=== PATIENT | male | born 1980 | race Hispanic/Latino ===

== ENCOUNTER 2018-06-12 18:23 | Emergency (ER) | payer BC, OTHER ==
--- NOTE | 2018-06-12 20:12 | RAD REPORT ---
EXAM DESCRIPTION: RAD - Lumbar Spine 3 Views - 06/12/2018 7:58 pm CLINICAL HISTORY: PAIN Radiculopathy COMPARISON: No comparisons FINDINGS: Vertebral body heights appear maintained. No compression fracture noted. Disc spaces are m aintained. No spondylolysis or spondylolisthesis. IMPRESSION: Negative study.
--- NOTE | 2018-06-12 20:26 | RAD REPORT ---
EXAM DESCRIPTION: RAD - Thoracic Spine Ap/Lat - 06/12/2018 8:11 pm CLINICAL HISTORY: PAIN Radiculopathy COMPARISON: No comparisons FINDINGS: The thoracic spine vertebral body heights and disc spaces are largely maintained. No acute compression fracture. A mild S-shaped scoliotic curvature is present. IMPRESSION: Mild scoliosis is noted without acute finding evident.
--- NOTE | 2018-06-12 20:34 | ER ---
Nurse's Notes [facility] Name: Tc Albarran Age: 38 yrs Sex: Male : 1980 Arrival Date: 06/12/2018 Time: 18:28 Bed 16 Private MD: Diagnosis: Low back pain;Muscle spasm of back Presentation: 06/12 18:43 Presenting complaint: Patient states: lower back pain that began 2 days ago. Pt denies aa5 N/V. Denies urinary symptoms. Pt denies known injury. Transition of care: patient was not received from another setting of care. Onset of symptoms was June 2018. Risk Assessment: Do you want to hurt yourself or someone else? Patient reports no desire to harm self or others. Initial Sepsis Screen: Does the patient meet any 2 criteria? No. Patient's initial sepsis screen is negative. Does the patient have a suspected source of infection? No. Patient's initial sepsis screen is negative. Care prior to arrival: None. 18:43 Method Of Arrival: Ambulatory aa5 18:43 Acuity: FRANTZ 3 aa5 Historical: - Allergies: 18:45 No Known Allergies; aa5 - PMHx: 18:45 Hyperlipidemia; aa5 - PSHx: 18:45 None; aa5 - Immunization history:: Adult Immunizations unknown. - Social history:: Smoking status: Patient/guardian denies using tobacco, Patient/guardian denies using street drugs, IV drugs. - Ebola Screening: : No symptoms or risks identified at this time. - Family history:: not pertinent. - Hospitalizations: : No recent hospitalization is reported. Screenin:36 Abuse screen: Denies threats or abuse. Denies injuries from another. Abuse screen:. aa1 Nutritional screening: No deficits noted. Tuberculosis screening: No symptoms or risk factors identified. Fall Risk None identified. Assessment: 19:36 General: Appears in no apparent distress. comfortable, Behavior is calm, cooperative, aa1 appropriate for age. Pain: Complains of pain in lumbar area and low back area Quality of pain is described as aching, Pain began 2-3 days ago. Is continuous. Neuro: Level of Consciousness is awake, alert, obeys commands, Oriented to person, place, time, situation, Moves all extremities. Full function Gait is steady. Respiratory: Airway is patent Respiratory effort is even, unlabored, Respiratory pattern is regular, symmetrical. GI: No signs and/or symptoms were reported involving the gastrointestinal system. : Denies burning with urination, inability to void, pain with urination. EENT: No signs and/or symptoms were reported regarding the EENT system. Derm: Skin is intact, is healthy with good turgor, Skin is pink, warm \T\ dry. Musculoskeletal: Circulation, motion, and sensation intact. Capillary refill < 3 seconds, Range of motion: intact in all extremities. 19:44 Reassessment: Pt taken to xray at this time. aa1 20:12 Reassessment: Patient appears in no apparent distress at this time. Patient and/or aa1 family updated on plan of care and expected duration. Pain level reassessed. Patient is alert, oriented x 3, equal unlabored respirations, skin warm/dry/pink. Pt back from x-ray. 20:42 Reassessment: Patient appears in no apparent distress at this time. Patient is alert, aa1 oriented x 3, equal unlabored respirations, skin warm/dry/pink. Discussed d/c \T\ f/u instructions with pt; denies questions or concerns at this time. Vital Signs: 18:45 BP 109 / 74; Pulse 77; Resp 18 S; Temp 98.0(TE); Pulse Ox 95% on R/A; Weight 113.4 kg aa5 (R); Height 5 ft. 11 in. (180.34 cm) (R); Pain 9/10; 19:36 BP 116 / 73; Pulse 81; Resp 18; Pulse Ox 97% on R/A; Pain 8/10; aa1 20:28 BP 107 / 84; Pulse 73; Resp 16; Pulse Ox 97% on R/A; aa1 18:45 Body Mass Index 34.87 (113.40 kg, 180.34 cm) aa5 ED Course: 18:28 Patient arrived in ED. rg4 18:44 Triage completed. aa5 18:44 Arm band placed on. aa5 19:25 Mindy Correia, RN is Primary Nurse. aa1 19:27 Serge Shea MD is Attending Physician. rn 19:36 Patient has correct armband on for positive identification. Bed in low position. Call aa1 light in reach. Pulse ox on. NIBP on. 19:58 XRAY Lumbar Spine (3 Views) In Process Unspecified. EDMS 20:03 XRAY Thoracic Spine (Ap/lat) In Process Unspecified. EDMS 20:42 No provider procedures requiring assistance completed. Patient did not have IV access aa1 during this emergency room visit. Administered Medications: No medications were administered Outcome: 20:33 Discharge ordered by . rn 20:42 Discharged to home ambulatory. aa1 20:42 Condition: good 20:42 Discharge instructions given to patient, Instructed on discharge instructions, follow up and referral plans. medication usage, Demonstrated understanding of instructions, follow-up care, medications, Prescriptions given X 1. 20:44 Patient left the ED. aa1 Signatures: Dispatcher [employer] EDMS Mindy Correia, RN RN aa1 Serge Shea MD MD rn Calderon, Audri, RN RN aa5 Marisa Pandya rg4
--- NOTE | 2018-06-12 20:34 | EDPHYS ---
Physician Documentation [facility] Name: Tc Albarran Age: 38 yrs Sex: Male : 1980 Arrival Date: 06/12/2018 Time: 18:28 Bed 16 Private MD: ED Physician Serge Shea HPI: 06/12 19:37 This 38 yrs old Male presents to ER via Ambulatory with complaints of Low Back rn Pain. 19:37 The patient presents with pain that is acute. The symptoms are located in the low back, rn lumbar area, left low back and right low back. The pain does not radiate. The problem was sustained from unknown cause. Onset: The symptoms/episode began/occurred 2 day(s) ago. Modifying factors: The patient symptoms are alleviated by remaining still, rest, the patient symptoms are aggravated by any movement. Severity of symptoms: At their worst the symptoms were moderate, in the emergency department the symptoms are unchanged. The patient has not experienced similar symptoms in the past. Reports low and mid back pain, non-radiating, began 2-3 days ago, worse with movement, no trauma, doesn't remember specific event that caused it, slowly worsening, no bowel/bladder complaints, no abd pain, no weakness or numbness of legs, is ambulatory.. Historical: - Allergies: 18:45 No Known Allergies; aa5 - PMHx: 18:45 Hyperlipidemia; aa5 - PSHx: 18:45 None; aa5 - Immunization history:: Adult Immunizations unknown. - Social history:: Smoking status: Patient/guardian denies using tobacco, Patient/guardian denies using street drugs, IV drugs. - Ebola Screening: : No symptoms or risks identified at this time. - Family history:: not pertinent. - Hospitalizations: : No recent hospitalization is reported. ROS: 19:37 Constitutional: Negative for fever, chills, and weight loss, Eyes: Negative for injury, rn pain, redness, and discharge, Neck: Negative for injury, pain, and swelling, Cardiovascular: Negative for chest pain, palpitations, and edema, Respiratory: Negative for shortness of breath, cough, wheezing, and pleuritic chest pain, Abdomen/GI: Negative for abdominal pain, nausea, vomiting, diarrhea, and constipation, Back: + back pain, no injury : Negative for injury, bleeding, discharge, and swelling, MS/Extremity: Negative for injury and deformity, Skin: Negative for injury, rash, and discoloration, Neuro: Negative for headache, weakness, numbness, tingling, and seizure. Exam: 19:37 Constitutional: This is a well developed, well nourished patient who is awake, alert, rn and in no acute distress. Head/Face: Normocephalic, atraumatic. Neck: Trachea midline, no thyromegaly or masses palpated, and no cervical lymphadenopathy. Supple, full range of motion without nuchal rigidity, or vertebral point tenderness. No Meningismus. Abdomen/GI: Soft, non-tender, with normal bowel sounds. No distension or tympany. No guarding or rebound. No evidence of tenderness throughout. Back: + lower thoracic and upper lumbar perispinal tenderness, no stepoff, no crepitus, no skin changes Skin: Warm, dry with normal turgor. Normal color with no rashes, no lesions, and no evidence of cellulitis. MS/ Extremity: Pulses equal, no cyanosis. Neurovascular intact. Full, normal range of motion. Equal circumference. Neuro: Awake and alert, GCS 15, oriented to person, place, time, and situation. Cranial nerves II-XII grossly intact. Motor strength 5/5 in all extremities. Sensory grossly intact. Cerebellar exam normal. Antalgic gait. Vital Signs: 18:45 BP 109 / 74; Pulse 77; Resp 18 S; Temp 98.0(TE); Pulse Ox 95% on R/A; Weight 113.4 kg aa5 (R); Height 5 ft. 11 in. (180.34 cm) (R); Pain 9/10; 19:36 BP 116 / 73; Pulse 81; Resp 18; Pulse Ox 97% on R/A; Pain 8/10; aa1 20:28 BP 107 / 84; Pulse 73; Resp 16; Pulse Ox 97% on R/A; aa1 18:45 Body Mass Index 34.87 (113.40 kg, 180.34 cm) aa5 MDM: 19:27 Patient medically screened. rn 20:32 Differential diagnosis: arthritis, strain, Herniated disc. Data reviewed: vital signs, rn nurses notes, radiologic studies, plain films, and as a result, I will discharge patient. Counseling: I had a detailed discussion with the patient and/or guardian regarding: the historical points, exam findings, and any diagnostic results supporting the discharge/admit diagnosis, radiology results, the need for outpatient follow up, to return to the emergency department if symptoms worsen or persist or if there are any questions or concerns that arise at home. Special discussion: I discussed with the patient/guardian in detail that at this point there is no indication for admission to the hospital. It is understood, however, that if the symptoms persist or worsen the patient needs to return immediately for re-evaluation. 06/12 19:31 Order name: XRAY Lumbar Spine (3 Views); Complete Time: 20:32 rn 06/12 19:31 Order name: XRAY Thoracic Spine (Ap/lat); Complete Time: 20:32 rn Administered Medications: No medications were administered Disposition: 06/12/18 20:33 Discharged to Home. Impression: Low back pain, Muscle spasm of back. - Condition is Stable. - Discharge Instructions: Back Pain, Adult, Muscle Cramps and Spasms, Musculoskeletal Pain, Back Exercises, [id number]. - Prescriptions for Cyclobenzaprine 10 mg Oral Tablet - take 1 tablet by ORAL route every 8 hours As needed; 30 tablet. - Medication Reconciliation Form, Thank You Letter, Antibiotic Education, Prescription Opioid Use form. - Follow up: Private Physician; When: As needed; Reason: Recheck today's complaints, Re-evaluation by your physician. - Problem is new. - Symptoms have improved. Signatures: Dispatcher [employer] EDMS Mindy Correia RN RN aa1 Serge Shea MD MD rn Calderon, Audri, RN RN aa5 Corrections: (The following items were deleted from the chart) 20:44 20:33 06/12/2018 20:33 Discharged to Home. Impression: Low back pain; Muscle spasm of aa1 back. Condition is Stable. Forms are Medication Reconciliation Form, Thank You Letter, Antibiotic Education, Prescription Opioid Use. Follow up: Private Physician; When: As needed; Reason: Recheck today's complaints, Re-evaluation by your physician. Problem is new. Symptoms have improved. rn
== END 2018-06-12 20:44 | disposition home or self-care (01) ==
LOC: ER 18:23
DX: M62.830 Muscle spasm of back (principal); E78.5 Hyperlipidemia, unspecified
CPT/HCPCS: 72070; 72100; 99283

== ENCOUNTER 2019-01-14 20:18 | Observation (INO) | payer OTHER ==
[2019-01-14 21:49] LABS: Absolute Lymphocytes (CBC) 2.4 K/uL (0.7-4.9); Absolute Monocytes 0.8 K/uL (0.1-1.3); Basophils % 0.4 % (0-1.3); Hematocrit 47.7 % (39.6-49.0); Lymphocytes % 22.9 % (15.3-44.8); MPV 9.4 fL (7.6-11.3); Monocytes % 7.5 % (3.3-12.3); RBC Red Blood Cell Count 5.37 M/uL (4.33-5.43)
[2019-01-14] MEDS ORDERED: ASPIRIN 81 MG CHEWABLE TABLET ONE (21:51)
[2019-01-14] MEDS ORDERED: KETOROLAC 30 MG/ML INJ ONE (21:51)
[2019-01-14] MEDS ORDERED: NA CHLORIDE 0.9% 1,000 ML ONE (21:51)
[2019-01-14 21:56] LABS: Protime INR 1.07
[2019-01-14 22:00] LABS: ALT/SGPT 106 U/L (12-78); AST/SGOT 43 U/L (15-37); Alkaline Phosphatase 119 U/L (45-117); BUN Blood Urea Nitrogen 16 mg/dL (7-18); Bicarbonate 28 mmol/L (21-32); Bilirubin Direct 0.3 mg/dL (0-0.2); Bilirubin Total 2.1 mg/dL (0.2-1.0); Glucose Level 94 mg/dL (74-106); Magnesium 2.5 mg/dL (1.8-2.4); Potassium 3.1 mmol/L (3.5-5.1); Protein, Total 8.1 g/dL (6.4-8.2); Sodium Level 142 mmol/L (136-145); Troponin (Emerg Dept Use Only) < 0.02 ng/mL (0.0-0.045)
[2019-01-14 22:04] LABS: NT PRO-BNP < 5 pg/mL (<125)
[2019-01-14] MEDS ORDERED: ACETAMINOPHEN 500 MG TAB PO PRN (22:34)
[2019-01-14] MEDS ORDERED: ALPRAZOLAM 0.25 MG TABLET PO PRN (22:34)
--- NOTE | 2019-01-14 22:36 | EDPHYS ---
Physician Documentation [facility] Name: Tc Albarran Age: 38 yrs Sex: Male : 1980 Arrival Date: 01/14/2019 Time: 20:22 Bed 26 Private MD: ED Physician Rosa Roberto HPI: 01/14 21:11 This 38 yrs old Male presents to ER via Ambulatory with complaints of Fall ma2 Injury, Numbness Of Arm, Dizziness. 21:11 Details of fall: The patient fell from an upright position. Associated injuries: The ma2 patient sustained injury to the chest, specifically the anterior aspect of left upper chest, left lateral anterior chest and left lateral posterior chest. Severity of symptoms: At their worst the symptoms were moderate, in the emergency department the symptoms are unchanged. The patient has not experienced similar symptoms in the past. had syncope fell and het left arm/shoulder however has beenhaving chest pain for 2 days on/off . Historical: - Allergies: 20:39 No Known Allergies; jd3 - Home Meds: 20:39 None [Active]; jd3 - PMHx: 20:39 High Cholesterol; jd3 - PSHx: 20:39 None; jd3 - Immunization history:: Adult Immunizations up to date. - Social history:: Smoking status: Patient/guardian denies using tobacco, Patient/guardian denies using alcohol, street drugs, The patient lives with family. - Ebola Screening: : Patient negative for fever greater than or equal to 101.5 degrees Fahrenheit, and additional compatible Ebola Virus Disease symptoms. - Family history:: not pertinent. ROS: 21:11 Constitutional: Negative for fever, chills, and weight loss. ma2 21:11 ENT: Negative for injury, pain, and discharge, Neck: Negative for injury, pain, and swelling, Respiratory: Negative for shortness of breath, cough, wheezing, and pleuritic chest pain, Abdomen/GI: Negative for abdominal pain, nausea, diarrhea, and constipation. 21:11 Cardiovascular: Positive for chest pain, Negative for edema, orthopnea, palpitations, acute changes. 21:11 MS/extremity: Positive for pain, Negative for abrasion, decreased range of motion, deformity, swelling, tingling. 21:11 All other systems are negative. Exam: 21:11 Constitutional: This is a well developed, well nourished patient who is awake, alert, ma2 and in no acute distress. Chest/axilla: Normal chest wall appearance and motion. Nontender with no deformity. No lesions are appreciated. Cardiovascular: Regular rate and rhythm with a normal S1 and S2. No gallops, murmurs, or rubs. Normal PMI, no JVD. No pulse deficits. Respiratory: Lungs have equal breath sounds bilaterally, clear to auscultation and percussion. No rales, rhonchi or wheezes noted. No increased work of breathing, no retractions or nasal flaring. Abdomen/GI: Soft, non-tender, with normal bowel sounds. No distension or tympany. No guarding or rebound. No evidence of tenderness throughout. 21:11 Head/Face: Normocephalic, atraumatic. Eyes: Pupils equal round and reactive to light, extra-ocular motions intact. Lids and lashes normal. Conjunctiva and sclera are non-icteric and not injected. Cornea within normal limits. Periorbital areas with no swelling, redness, or edema. Back: No spinal tenderness. No costovertebral tenderness. Full range of motion. Neuro: Awake and alert, GCS 15, oriented to person, place, time, and situation. Cranial nerves II-XII grossly intact. Motor strength 5/5 in all extremities. Sensory grossly intact. Cerebellar exam normal. Normal gait. 21:11 Musculoskeletal/extremity: ROM: limited passive range of motion, in the left arm. Vital Signs: 20:39 BP 115 / 85; Pulse 86; Resp 16 S; Temp 98.5(O); Pulse Ox 95% on R/A; Weight 108.86 kg jd3 (R); Height 5 ft. 11 in. (180.34 cm) (R); Pain 7/10; 22:28 BP 106 / 71; Pulse 75; Resp 16; Pulse Ox 95% on R/A; Pain 4/10; ed1 20:39 Body Mass Index 33.47 (108.86 kg, 180.34 cm) jd3 MDM: 20:47 Patient medically screened. ma2 21:11 Differential diagnosis: fracture, strain, need chest pain workup acs rule out . ma2 21:56 Data reviewed: vital signs, nurses notes, lab test result(s), radiologic studies, plain ma2 films. Counseling: I had a detailed discussion with the patient and/or guardian regarding: the historical points, exam findings, and any diagnostic results supporting the discharge/admit diagnosis, the need for further work-up and treatment in the hospital. 22:34 Physician consultation: Rosa Dominguez MD was contacted at 22:35, regarding admission, kb to the telemetry unit. and will see patient in ED, shortly. ED course: Dr Manzano discussed admission with the patient prior to leaving. Wanted pt admitted for chest pain and syncope. 01/14 21:10 Order name: Basic Metabolic Panel; Complete Time: 22:30 ky2 01/14 21:10 Order name: CBC with Diff; Complete Time: 21:53 ky2 01/14 21:10 Order name: LFT's; Complete Time: 22:30 ky2 01/14 21:10 Order name: Magnesium; Complete Time: 22:30 [facility] 01/14 21:10 Order name: NT PRO-BNP; Complete Time: 22:30 [facility] 01/14 21:10 Order name: PT-INR; Complete Time: 22:30 [facility] 01/14 21:10 Order name: Troponin (emerg Dept Use Only); Complete Time: 22:30 ky2 01/14 22:48 Order name: Basic Metabolic Panel [facility] 01/14 22:48 Order name: Basic Metabolic Panel [facility] 01/14 22:48 Order name: CBC with Automated Diff [facility] 01/14 22:48 Order name: CBC with Automated Diff [facility] 01/14 22:48 Order name: Lipid Profile [facility] 01/14 22:48 Order name: Lipid Profile [facility] 01/14 22:48 Order name: Troponin I [facility] 01/14 21:10 Order name: XRAY Chest (1 view) [facility] 01/14 21:10 Order name: EKG; Complete Time: 21:11 ky2 01/14 21:10 Order name: Cardiac monitoring; Complete Time: 21:14 [facility] 01/14 21:10 Order name: EKG - Nurse/Tech; Complete Time: 21:23 ky2 01/14 21:10 Order name: Humerus Left XRAY [facility] 01/14 22:48 Order name: CONS Physician Consult [facility] 01/14 22:48 Order name: Heart Healthy [facility] 01/14 22:48 Order name: Echo with Doppler [facility] 01/14 22:48 Order name: Troponin I [facility] 01/14 22:48 Order name: Troponin I [facility] 01/15 06:07 Order name: Lipid Profile [facility] 01/15 06:34 Order name: LDL, Direct [facility] 01/14 21:10 Order name: IV Saline Lock; Complete Time: 21:37 ky2 01/14 21:10 Order name: Labs collected and sent; Complete Time: 21:37 ky2 01/14 21:10 Order name: O2 Per Protocol; Complete Time: 21:14 ma2 01/14 21:10 Order name: O2 Sat Monitoring; Complete Time: 21:13 ma2 Administered Medications: 21:44 Drug: TORadol 30 mg Route: IVP; Site: right antecubital; ed1 22:37 Follow up: Response: No adverse reaction; Pain is decreased ed1 21:44 Drug: NS 0.9% 1000 ml Route: IV; Rate: 1 bolus; Site: right antecubital; ed1 23:35 Follow up: IV Status: Completed infusion; IV Intake: 1000ml ed1 21:45 Drug: Aspirin Chewable Tablet 324 mg Route: PO; ed1 22:38 Follow up: Response: No adverse reaction ed1 22:45 Drug: Potassium Chloride 40 mEq Route: PO; ed1 23:35 Follow up: Response: No adverse reaction ed1 Disposition: 01/14/19 22:36 Hospitalization ordered by Rosa Dominguez for Observation. Preliminary diagnosis are Chest pain, unspecified, Syncope and collapse. - Bed requested for Telemetry/MedSurg (observation). - Status is Observation. ss - Condition is Stable. - Problem is new. - Symptoms are resolved. UTI on Admission? No Signatures: Dispatcher [employer] EDCA Shahnaz Quevedo, WINSOME-Jonathan RELIGIOUS EDUCATION DIRECTOR-Katia Flores Shelby, RN RN ss Riggs, Erika, RN RN ed1 Baljeet Leonard RN RN jd3 Alzahri, Mohammad, MD MD ma2 Corrections: (The following items were deleted from the chart) 23:34 22:36 Hospitalization Ordered by Rosa Dominguez MD for Observation. Preliminary ed1 diagnosis is Chest pain, unspecified; Syncope and collapse. Bed requested for Telemetry/MedSurg (observation). Status is Observation. Condition is Stable. Problem is new. Symptoms are resolved. UTI on Admission? No. kb 01/15 07:08 01/14 23:34 01/14/2019 22:36 Hospitalization Ordered by Rosa Dominguez MD for bd Observation. Preliminary diagnosis is Chest pain, unspecified; Syncope and collapse. Bed requested for [facility] ER HOLD. Status is Observation. Condition is Stable. Problem is new. Symptoms are resolved. UTI on Admission? No. ed1 01/15 08:24 07:08 01/14/2019 22:36 Hospitalization Ordered by Rosa Dominguez MD for Observation. ss Preliminary diagnosis is Chest pain, unspecified; Syncope and collapse. Bed requested for Telemetry/MedSurg (observation). Status is Observation. Condition is Stable. Problem is new. Symptoms are resolved. UTI on Admission? No. bd
--- NOTE | 2019-01-14 22:36 | ER ---
Nurse's Notes [facility] Name: Tc Albarran Age: 38 yrs Sex: Male : 1980 Arrival Date: 01/14/2019 Time: 20:22 Bed 26 Private MD: Diagnosis: Chest pain, unspecified;Syncope and collapse Presentation: 01/14 20:36 Presenting complaint: Patient states: "I was laying in bed and when I stud up I blacked jd3 out for a minute and fell in my room. I felt dizzy and my head was spinning and my left arm felt numb, but it has gotten better.". Transition of care: patient was not received from another setting of care. Onset of symptoms was January 14, 2019. Risk Assessment: Do you want to hurt yourself or someone else? Patient reports no desire to harm self or others. Initial Sepsis Screen: Does the patient meet any 2 criteria? No. Patient's initial sepsis screen is negative. Does the patient have a suspected source of infection? No. Patient's initial sepsis screen is negative. Care prior to arrival: None. 20:36 Method Of Arrival: Ambulatory jd3 20:36 Acuity: FRANTZ 3 jd3 Historical: - Allergies: 20:39 No Known Allergies; jd3 - Home Meds: 20:39 None [Active]; jd3 - PMHx: 20:39 High Cholesterol; jd3 - PSHx: 20:39 None; jd3 - Immunization history:: Adult Immunizations up to date. - Social history:: Smoking status: Patient/guardian denies using tobacco, Patient/guardian denies using alcohol, street drugs, The patient lives with family. - Ebola Screening: : Patient negative for fever greater than or equal to 101.5 degrees Fahrenheit, and additional compatible Ebola Virus Disease symptoms. - Family history:: not pertinent. Screenin:47 Abuse screen: Denies threats or abuse. Denies injuries from another. Nutritional ed1 screening: No deficits noted. Tuberculosis screening: No symptoms or risk factors identified. Fall Risk Fall in past 12 months (25 points). No secondary diagnosis (0 pts). No IV (0 pts). Ambulatory Aid- None/Bed Rest/Nurse Assist (0 pts). Gait- Normal/Bed Rest/Wheelchair (0 pts) Mental Status- Oriented to own ability (0 pts). Total Soot Fall Scale indicates Low Risk Score (25-44 pts). Fall prevention measures have been instituted. Side Rails Up X 2 Frequent Obs/Assesments occuring Family Present and informed to notify staff if they need to leave bedside As available Patient and Family Educated on Fall Prevention Program and strategies. 21:45 Patient has been NPO before screening. The patient is alert, able to follow commands. ed1 The patient does not exhibit slurred or garbled speech The patient is not exhibiting difficulty speaking. The patient does not exhibit difficulty understanding words. The patient is able to swallow own secretions with no drooling or need for suction. Patient tolerated one teaspoon of water. No drooling, immediate coughing, gurgling, or clearing of the throat was noted. The patient tolerated 90mL of water. No drooling, immediate coughing, gurgling, or clearing of the throat was noted. The patient passed the bedside swallow screening. Oral medications may be given as ordered. Contact Physician for further diet orders. Assessment: 20:47 General: Appears uncomfortable, Behavior is calm, cooperative. Pain: Complains of pain ed1 in left shoulder Pain radiates to left arm Pain currently is 7 out of 10 on a pain scale. Quality of pain is described as aching, tingling, Pain began 1 hour ago. Is continuous. Neuro: Level of Consciousness is awake, alert, obeys commands, Oriented to person, place, time, situation, Gait is steady, Speech is normal, Reports numbness in left arm weakness Denies blurred vision dizziness, headache. Cardiovascular: Denies chest pain, Heart tones S1 S2 present Capillary refill < 3 seconds in bilateral fingers Patient's skin is warm and dry. Respiratory: Airway is patent Respiratory effort is even, unlabored, Respiratory pattern is regular, symmetrical, Breath sounds are clear bilaterally. Denies cough, shortness of breath. GI: Abdomen is non-distended, Bowel sounds present X 4 quads. Abd is soft and non tender X 4 quads. Patient currently denies diarrhea, nausea, vomiting. : No signs and/or symptoms were reported regarding the genitourinary system. EENT: No signs and/or symptoms were reported regarding the EENT system. Derm: Skin is intact, is healthy with good turgor, Skin is dry, Skin is normal, Skin temperature is warm. Musculoskeletal: Circulation, motion, and sensation intact. Capillary refill < 3 seconds, in bilateral fingers. Range of motion: limited in left shoulder Swelling absent Reports numbness in left arm pain in left shoulder Pain is 7 out of 10 on a pain scale. 22:28 Reassessment: Patient appears in no apparent distress at this time. Patient and/or ed1 family updated on plan of care and expected duration. Pain level reassessed. Patient is alert, oriented x 3, equal unlabored respirations, skin warm/dry/pink. Patient states feeling better. Patient states symptoms have improved. Vital Signs: 20:39 BP 115 / 85; Pulse 86; Resp 16 S; Temp 98.5(O); Pulse Ox 95% on R/A; Weight 108.86 kg jd3 (R); Height 5 ft. 11 in. (180.34 cm) (R); Pain 7/10; 22:28 BP 106 / 71; Pulse 75; Resp 16; Pulse Ox 95% on R/A; Pain 4/10; ed1 20:39 Body Mass Index 33.47 (108.86 kg, 180.34 cm) jd3 ED Course: 20:22 Patient arrived in ED. am2 20:38 Triage completed. jd3 20:39 Arm band placed on Patient notified of wait time. jd3 20:41 Hodan Ledesma, RN is Primary Nurse. ed1 20:47 Awaiting ED provider evaluation. ed1 20:47 Patient has correct armband on for positive identification. Placed in gown. Bed in low ed1 position. Call light in reach. Side rails up X2. Adult w/ patient. Pulse ox on. NIBP on. 20:59 Rosa Roberto MD is Attending Physician. ma2 21:26 teletypesetter monitor on. jp3 21:26 EKG done, by ED staff, reviewed by Rosa Roberto MD. ed1 21:36 Initial lab(s) drawn, by me, sent to lab. Inserted saline lock: 20 gauge in right ed1 antecubital area, using aseptic technique. Blood collected. 22:00 Patient moved to radiology via wheelchair. jr1 22:16 XRAY Chest (1 view) In Process Unspecified. EDMS 22:16 Humerus Left XRAY In Process Unspecified. EDMS 22:36 Rosa Dominguze MD is Hospitalizing Provider. kb 23:34 No provider procedures requiring assistance completed. Patient admitted, IV remains in ed1 place. intact, No redness/swelling at site. Administered Medications: 21:44 Drug: TORadol 30 mg Route: IVP; Site: right antecubital; ed1 22:37 Follow up: Response: No adverse reaction; Pain is decreased ed1 21:44 Drug: NS 0.9% 1000 ml Route: IV; Rate: 1 bolus; Site: right antecubital; ed1 23:35 Follow up: IV Status: Completed infusion; IV Intake: 1000ml ed1 21:45 Drug: Aspirin Chewable Tablet 324 mg Route: PO; ed1 22:38 Follow up: Response: No adverse reaction ed1 22:45 Drug: Potassium Chloride 40 mEq Route: PO; ed1 23:35 Follow up: Response: No adverse reaction ed1 Intake: 23:35 IV: 1000ml; Total: 1000ml. ed1 Outcome: 22:36 Decision to Hospitalize by Provider. kb 23:34 Admitted to ER Hold. Please see [facility] for further documentation. ed1 23:34 Condition: stable 23:34 Discharge instructions given to patient, Instructed on the need for admit, Demonstrated understanding of instructions. 04 08:24 Patient left the ED. ss Signatures: Dispatcher [employer] EDMS Shahnaz Quevedo, GOLF TOURNAMENT CONSULTANT-C GOLF TOURNAMENT CONSULTANT-Ckb Rebecca Murphy jr1 Olga Khan RN RN ss Riggs, Erika, RN RN ed1 Kendy Juarez am2 Baljeet Leonard RN RN Rosa Lion MD MD ma2 Ac Green jp3 Corrections: (The following items were deleted from the chart) 04 21:36 21:26 EKG done, by ED staff, reviewed by Hodan Ledesma RN jp3 ed1
[2019-01-14] MEDS ORDERED: POTASSIUM CL SA 10 MEQ TAB PO ONE (22:53)
[2019-01-15 05:56] LABS: Absolute Lymphocytes (CBC) 2.3 K/uL (0.7-4.9); Absolute Monocytes 0.6 K/uL (0.1-1.3); Absolute Neutrophil 5.1 K/uL (1.8-8.0); Basophils % 0.4 % (0-1.3); Eosinophils % 3.3 % (0-4.4); MPV 9.5 fL (7.6-11.3); Monocytes % 7.6 % (3.3-12.3); RBC Red Blood Cell Count 5.16 M/uL (4.33-5.43)
[2019-01-15 06:06] LABS: BUN Blood Urea Nitrogen 17 mg/dL (7-18); Bicarbonate 29 mmol/L (21-32); Glucose Level 92 mg/dL (74-106); HDL Cholesterol 31 mg/dL (40-60); LDL Cholesterol, Calculated ND (<130); Potassium 3.4 mmol/L (3.5-5.1); Sodium Level 143 mmol/L (136-145)
[2019-01-15 06:18] LABS: LDL, Direct 79 mg/dL (100-129)
--- NOTE | 2019-01-15 07:56 | RAD REPORT ---
EXAM DESCRIPTION: RAD - Humerus Left - 01/14/2019 10:19 pm CLINICAL HISTORY: Left arm pain status post fall FINDINGS: No fracture is seen
--- NOTE | 2019-01-15 08:01 | RAD REPORT ---
EXAM DESCRIPTION: Roro Single View01/14/2019 10:21 pm CLINICAL HISTORY: Chest pain COMPARISON: none FINDINGS: The lungs appear clear of acute infiltrate. The heart is normal size IMPRESSION: No acute abnormalities displayed
[2019-01-15] MEDS: METOPROLOL TAR 50 MG TAB PO SCH ×2 (09:00→21:04)
[2019-01-15] MEDS: ENOXAPARIN 40 MG/0.4 ML SQ SCH (09:00)
[2019-01-15] MEDS: ASPIRIN EC 81 MG TAB PO SCH (09:01)
--- NOTE | 2019-01-15 10:06 | ECHO ---
HEIGHT: 5 ft 11 in WEIGHT: 239 lb 15.923 oz DATE OF STUDY: 01/15/[address]: Rosa Dominguez MD 2-DIMENSIONAL: YES M.MODE: YES DOPPLER: YES COLOR FLOW: YES TDS: NO PORTABLE: NO DEFINITY: NO BUBBLE STUDY: NO DIAGNOSIS: SYNCOPE CARDIAC HISTORY: CATHERIZATION: NO SURGERY: NO PROSTHETIC VALVE: NO PACEMAKER: NO MEASUREMENTS (cm) DIASTOLIC (NORMALS) SYSTOLIC (NORMALS) IVSd 1.0 (0.6-1.2) LA Diam 3.7 (1.9-4.0) LVEF 59% LVIDd 4.1 (3.5-5.7) LVIDs 2.8 (2.0-3.5) %FS 31% LVPWd 1.1 (0.6-1.2) Ao Diam 2.9 (2.0-3.7) 2 DIMENSIONAL ASSESSMENT: RIGHT ATRIUM: NORMAL LEFT ATRIUM: NORMAL RIGHT VENTRICLE: NORMAL LEFT VENTRICLE: NORMAL TRICUSPID VALVE: NORMAL MITRAL VALVE: NORMAL PULMONIC VALVE: NORMAL AORTIC VALVE: NORMAL PERICARDIAL EFFUSION: NONE AORTIC ROOT: NORMAL LEFT VENTRICULAR WALL MOTION: NORMAL. DOPPLER/COLOR FLOW: NORMAL. COMMENTS: NORMAL 2D ECHO WITH DOPPLER. TECHNOLOGIST: JEANETTE DUNBAR
--- NOTE | 2019-01-15 10:45 | EKG ---
Test Date: 2019-01-14 Test Time: 21:21:45 Managed Care Analyst: JAYLENE MEASUREMENT RESULTS: Intervals: Rate: 71 ID: [id number] QRSD: 92 QT: 400 QTc: 434 [place]: P: 37 ID: [id number] QRS: 4 T: 11 INTERPRETIVE STATEMENTS: Normal sinus rhythm Normal ECG Electronically Signed On 01-15-19 10:44:15 CDT by Melvin Zaidi
--- NOTE | 2019-01-15 11:19 | P.HP ---
Certification for Inpatient Patient admitted to: Observation With expected LOS: <2 Midnights Patient will require the following post-hospital care: None Practitioner: I am a practitioner with admitting privileges, knowledge of patient current condition, hospital course, and medical plan of care. Services: Services provided to patient in accordance with Admission requirements found in Title 42 Section 412.3 of the Code of Federal Regulations Patient History Date of Service: 01/15/19 Reason for admission: status post fall with left-sided paresthesias History of Present Illness: Patient is a 30-year-old gentleman who came to the hospital after he suffered a fall and left-sided injury. He fell and had a syncopal episode. He states he was ambulating and suddenly he felt dizzy -meaning faint- and he suddenly collapsed to be in landed on the left side of his body. When he awoke and he had paresthesias and weakness on the left upper extremity. He was brought into the hospital for further workup. In the emergency room his initial workup was negative. He will be admitted to the hospital for further workup regarding his syncopal event. He is still having some left-sided paresthesias. His strength is a 5/5 however in both extremities. He does have some sensory deficits. Will admit him to the hospital and worked him up. Allergies No Known Allergies Allergy (Verified 01/15/19 08:21) Home Medications: NK [No Home Meds] 01/14/19 - Past Medical/Surgical History Has patient received pneumonia vaccine in the past: No Past Medical History: Patient denies medical history Past Surgical History: Patient denies surgical history - Family History Father Family History: Reviewed- Non-Contributory - Social History Smoking Status: Never smoker Alcohol use: No CD- Drugs: No Caffeine use: No Review of Systems 10-point ROS is otherwise unremarkable Physical Examination - Vital Signs Temperature: 97.8 F Blood Pressure: 115/65 Pulse: 79 Respirations: 18 Pulse Ox (%): 95 - Physical Exam General: Alert, In no apparent distress, Oriented x3 HEENT: Atraumatic, PERRLA, Mucous membr. moist/pink, EOMI, Sclerae nonicteric Neck: Supple, 2+ carotid pulse no bruit, No LAD, Without JVD or thyroid abnormality Respiratory: Clear to auscultation bilaterally, Normal air movement Cardiovascular: Regular rate/rhythm, Normal S1 S2, No murmurs Gastrointestinal: Normal bowel sounds, Soft and benign, Non-distended, No tenderness, No rebound, No guarding Musculoskeletal: No clubbing, No swelling, No tenderness Integumentary: No rashes Neurological: Normal gait, Normal speech, Normal strength at 5/5 x4 extr, Normal tone, Normal affect, Abnormal sensation Lymphatics: No axilla or inguinal lymphadenopathy - Studies Laboratory Data (last 24 hrs) 01/14/19 21:30: PT 12.6 H, INR 1.07 01/14/19 21:30: WBC 10.4, Hgb 16.3, Hct 47.7, Plt Count 213 01/14/19 21:30: Sodium 142, Potassium 3.1 L, BUN 16, Creatinine 0.95, Glucose 94 , Magnesium 2.5 H, Total Bilirubin 2.1 H, AST 43 H, ALT 106 H, Alkaline Phosphatase 119 H Assessment & Plan - Problems (Diagnosis) (1) Syncope and collapse Current Visit: Yes Status: Acute (2) Arm paresthesia, left Current Visit: Yes Status: Acute - Plan 1. MRI of the brain 2. Echocardiogram and carotid Doppler 3. Anti-platelet therapy and statin therapy 4. Neurology consultation if symptoms do not improve 5. Strict BP and BS control 6. DVT prophylaxis Discharge Plan: Home Plan to discharge in: 24 Hours - Advance Directives Does patient have a Living Will: No Does patient have a Durable POA for Healthcare: No - Code Status/Comfort Care Code Status Assessed: Yes Code Status: Full Code Critical Care: No Time Spent Managing PTS Care (In Minutes): 45
--- NOTE | 2019-01-15 11:29 | RAD REPORT ---
EXAM DESCRIPTION: MRI - Brain W/Wo Cont - 01/15/2019 11:11 am CLINICAL HISTORY: Syncope, stroke-like symptoms, headache, dizziness COMPARISON: None. TECHNIQUE: Sagittal and axial T1-weighted images were obtained. Axial PD/heavily T2-weighted and T2- FLAIR images were obtained along with axial DWI/ADC mapping sequences. Coronal heavily T2 weighted s equence obtained. Axial and coronal post-contrast T1-weighted images were also obtained. A 20 ml Mul tihance contrast following utilized. FINDINGS: No intracranial hemorrhage, mass or acute infarction. There is no edema or shift of midli ne structures. No extra-axial fluid collections. Nicholson-matter/white matter junction is preserved. Sig nal voids are seen as a normal finding in the major intracranial vessels. Post-contrast images show normal enhancement. No dural thickening. Mastoid air cells are clear. No air-fluid level in the sinuses. Polyps or retention cysts are present along the floor of the left maxillary sinus. No globe or orbital content abnormality. IMPRESSION: No infarction, mass or other acute intracranial finding. No suspicious findings seen. Retention cysts or polyps along the floor of the left maxillary sinus. No acute sinus finding.
--- NOTE | 2019-01-15 11:36 | RAD REPORT ---
EXAM DESCRIPTION: MRI - MRA Head Wo Cont - 01/15/2019 11:11 am CLINICAL HISTORY: Syncope, stroke-like symptoms, dizziness COMPARISON: MR brain same date TECHNIQUE: Axial and coronal 3D [id number] image acquisition was performed. 3D rotational images were generated with source and reconstruction images reviewed. Horizontal and vertical axis rotation al views generated using MIP protocol. FINDINGS: No aneurysm or vascular malformation identified. No vasculitis or other diffuse vascular p rocess seen. No occlusion or focal narrowing identified. Patient has a normal variant right vertebral artery terminating at the posterior inferior cerebellar artery. IMPRESSION: MRA head examination shows no significant or suspicious finding.
--- NOTE | 2019-01-15 11:38 | RAD REPORT ---
EXAM DESCRIPTION: MRI - MRA Neck W/Wo Cont - 01/15/2019 11:11 am CLINICAL HISTORY: Syncope, stroke-like symptoms, dizziness COMPARISON: None. TECHNIQUE: Axial and coronal 3D [id number] image acquisition was performed. 3D rotational images were generated with source and reconstruction images reviewed. Horizontal and vertical axis rotation al views generated using MIP protocol. FINDINGS: Aortic arch is 3 vessel with no origin stenoses. Origins of each vertebral artery normal a s well. Left vertebral artery is dominant. Right vertebral artery terminates at the posterior inferio r cerebellar artery as a normal variant. No aneurysm or vascular malformation. No dissection is seen. No focal or diffuse vascular abnormality identifiable. IMPRESSION: Unremarkable MRA neck examination.
[2019-01-15 12:08] LABS: HDL Cholesterol 31 mg/dL (40-60); LDL Cholesterol, Calculated ND (<130)
[2019-01-15 12:20] LABS: LDL, Direct 85 mg/dL (100-129)
--- NOTE | 2019-01-15 15:29 | CON ---
Chief Complaint: Syncope. History Of Present Illness: Mr. Virgil Albarran was lying in bed. His children were imploring him to get up. He had been tired. It was late in the afternoon when he got out of bed and stood up. He re members feeling the room spin. He fell to the floor. He thinks there was loss of consciousness, but on closer questioning, he was always aware of voices. He knew his children were very frightened. I t was 10 minutes before he could get up. He did not report feeling nauseated. Half an hour later he noticed his left pectoral muscle was sore. He came to the hospital where a chest x-ray and humerus x-rays are rather unremarkable and EKG is normal. Cardiac enzymes are normal. He is scheduled to weaver ve MRIs, MRAs, cerebral and extracranial pre-cerebral vessels and echo. The patient has no previous history of syncope. No history of diabetes, hypertension, dyslipidemia. No tobacco use. No illegal drug use. Physical Examination: Vital signs: 5 feet 11, 239 pounds. HEENT: Normal. No carotid bruits. Lungs: Clear. Heart: Within normal limits. Abdomen: Soft. Extremities: Normal. I did a Hallpike maneuver; when he turns his head to the left and lies back, he has a lot of nystagmu s and vertigo symptoms on the right, minimal. Impression: The patient probably had intense positional vertigo. I think it would possibly benefit him to have Ulises's maneuvers done, that being said it should only be done if all of the other studie s are normal looking for vascular disease. I do not suspect it was cardiac arrhythmia or vascular disease that causes near-syncope and vertiginous symptoms. JABARI/JAHAIRA Voice ID: [id number] Report ID: [id number]
[2019-01-15] MEDS ORDERED: ATORVASTATIN 40 MG TAB PO SCH (21:00)
[2019-01-16] MEDS: METOPROLOL TAR 50 MG TAB PO SCH (08:37)
[2019-01-16] MEDS: ENOXAPARIN 40 MG/0.4 ML SQ SCH (08:37)
[2019-01-16] MEDS: ASPIRIN EC 81 MG TAB PO SCH (08:38)
--- NOTE | 2019-01-16 11:42 | PN ---
Mr. Virgil Albarran has a negative workup in all ways. No evidence of vascular disease or arrhythmia o r cardiac valve formation and based on my exam yesterday and history, I think what he had was transie nt vertigo. At this point, I think he could be discharged home. JABARI/JAHAIRA Voice ID: [id number] Report ID: [id number]
--- NOTE | 2019-01-16 12:45 | P.SSS ---
Patient History Date of Service: 01/16/19 Reason for admission: status post fall with left-sided paresthesias History of Present Illness: Patient is a 30-year-old gentleman who came to the hospital after he suffered a fall and left-sided injury. He fell and had a syncopal episode. He states he was ambulating and suddenly he felt dizzy -meaning faint- and he suddenly collapsed to be in landed on the left side of his body. When he awoke and he had paresthesias and weakness on the left upper extremity. He was brought into the hospital for further workup. In the emergency room his initial workup was negative. He will be admitted to the hospital for further workup regarding his syncopal event. He is still having some left-sided paresthesias. His strength is a 5/5 however in both extremities. He does have some sensory deficits. Will admit him to the hospital and worked him up. Allergies No Known Allergies Allergy (Verified 01/15/19 08:21) Home Medications: Atorvastatin Calcium [Lipitor] 40 mg PO BEDTIME #30 tab 01/16/19 - Past Medical/Surgical History Has patient received pneumonia vaccine in the past: No - Social History Smoking Status: Never smoker Alcohol use: No CD- Drugs: No Caffeine use: No Review of Systems 10-point ROS is otherwise unremarkable Physical Examination - Vital Signs Temperature: 97.8 F Blood Pressure: 118/62 Pulse: 71 Respirations: 18 Pulse Ox (%): 96 - Physical Exam General: Alert, In no apparent distress, Oriented x3 HEENT: Atraumatic, PERRLA, Mucous membr. moist/pink, EOMI, Sclerae nonicteric Neck: Supple, 2+ carotid pulse no bruit, No LAD, Without JVD or thyroid abnormality Respiratory: Clear to auscultation bilaterally, Normal air movement Cardiovascular: Regular rate/rhythm, Normal S1 S2 Gastrointestinal: Normal bowel sounds, No tenderness Musculoskeletal: No tenderness Integumentary: No rashes Neurological: Normal gait, Normal speech, Normal strength at 5/5 x4 extr, Normal tone, Normal affect - Diagnosis (Problem(s)) (1) Arm paresthesia, left Current Visit: Yes Status: Acute (2) Hypertriglyceridemia Current Visit: Yes Status: Acute (3) Syncope and collapse Current Visit: Yes Status: Acute Treatment Summary: Patient was admitted. An echocardiogram was done for his syncope which was normal with ejection fraction of 59%. A neck MRA, and brain MRI/MRA was done, which was normal without any acute abnormalities. Cardiology was consulted this. No cardiac testing/intervention is planned at this time. He was cleared for discharge by cardiology point of view. He was started on antiplatelet therapy and statin therapy. Lipid panel was done , LDL was normal but his triglycerides were elevated. He will be discharged on a statin medication. Prior to discharge, his symptoms of paresthesias resolved , he did not have any episodes of dizziness or passing out throughout the stay. He did complain of some shoulder pain when he fell. Recommended to take Tylenol to help with the pain. He is recommended to follow up with the primary care physician in a few days. He stated that he did not have a primary care physician. A list was provided to him prior to discharge and encouraged to pick 1 on follow up in 1 week. - Disposition Discharge Date: 01/16/19 Disposition: ROUTINE DISCHARGE Condition: GOOD Consultations: Cardiology, Dr. Zaidi Patient Discharge Instructions: Please follow up with the primary care physician in 1 week. Please return to the emergency room for worsening symptoms. Diet: AHA Activity: Ad jasmin Time Spent Managing Pts Care (In Minutes): 55
== END 2019-01-16 14:35 | disposition home or self-care (01) ==
LOC: ER 20:18 → ERHOLD 23:01 → 2ND 01-15 07:38
PROVIDERS: ADMIT Hospitalist; ATTEND Hospitalist
DX: R55 Syncope and collapse (principal); R20.2 Paresthesia of skin; E78.1 Pure hyperglyceridemia; W18.30XA Fall on same level, unspecified, initial encounter; Y93.9 Activity, unspecified; Y92.009 Unspecified place in unspecified non-institutional (private) residence as the place of occurrence of the external cause
CPT/HCPCS: 36415; 70544; 70549; 70553; 71045; 80048; 80061; 80076; 83735; 83880; 84484; 85025; 85610; 93005; 93306; 96361; 96374; 97162; 99285; A9577; G0378; J1650; J7030

== ENCOUNTER 2020-09-27 20:12 | Emergency (ER) | payer OTHER ==
[2020-09-27 21:54] LABS: Absolute Lymphocytes (CBC) 2.7 K/uL (0.7-4.9); Basophils % 0.5 % (0-1.3); Hematocrit 45.5 % (39.6-49.0); Lymphocytes % 32.2 % (15.3-44.8); MPV 9.5 fL (7.6-11.3); RBC Red Blood Cell Count 5.15 M/uL (4.33-5.43)
[2020-09-27 22:38] LABS: ALT/SGPT 147 U/L (12-78); AST/SGOT 70 U/L (15-37); Albumin 3.7 g/dL (3.4-5.0); Alkaline Phosphatase 126 U/L (45-117); BUN Blood Urea Nitrogen 19 mg/dL (7-18); Bicarbonate 28 mmol/L (21-32); Bilirubin Direct 0.2 mg/dL (0-0.2); Bilirubin Total 1.1 mg/dL (0.2-1.0); Glucose Level 101 mg/dL (74-106); Magnesium 2.4 mg/dL (1.8-2.4); NT PRO-BNP 8 pg/mL (<125); Potassium 3.2 mmol/L (3.5-5.1); Protein, Total 7.3 g/dL (6.4-8.2); Sodium Level 141 mmol/L (136-145); Troponin (Emerg Dept Use Only) < 0.02 ng/mL (0.0-0.045)
--- NOTE | 2020-09-28 01:57 | EDPHYS ---
Physician Documentation [facility] Name: Tc Albarran Age: 40 yrs Sex: Male : 1980 Arrival Date: 09/27/2020 Time: 20:16 Bed 19 Private MD: ED Physician Rosa Roberto HPI: 09/28 00:36 This 40 yrs old Male presents to ER via Ambulatory with complaints of Chest ma2 Pain - left side lump. 00:36 The patient or guardian reports chest pain that is located primarily in the left ma2 breast. Onset: gradually, 1 week(s) ago. Associated signs and symptoms: Pertinent negatives: cough, diaphoresis, headache, lower extremity pain, lightheadedness, syncope, vomiting. Severity of pain: At its worst the pain was mild in the emergency department the pain is unchanged. The patient has not experienced similar symptoms in the past. healthy 40 yo male with left sided chest wall tenderness that is constant for a week he states it is tender and there was a lump on his left breast that resolved.. never had this before no draining. Historical: - Allergies: 09/27 20:28 No Known Allergies; ca1 - Home Meds: 20:28 None [Active]; ca1 - PMHx: 20:28 High Cholesterol; Hyperlipidemia; ca1 - PSHx: 20:28 None; ca1 - Immunization history:: Adult Immunizations up to date, Flu vaccine is up to date. - Social history:: Smoking status: Patient denies any tobacco usage or history of. Patient/guardian denies using alcohol, street drugs, The patient lives with family. - Family history:: not pertinent. ROS: 09/28 00:36 Constitutional: Negative for fever, chills, and weight loss. ma2 All other systems are negative. Exam: 00:36 Constitutional: This is a well developed, well nourished patient who is awake, alert, ma2 and in no acute distress. Chest/axilla: tenderness to palpation pver left nipple no lump or skin changed Normal chest wall appearance and motion. Nontender with no deformity. No lesions are appreciated. Cardiovascular: Regular rate and rhythm with a normal S1 and S2. No gallops, murmurs, or rubs. Normal PMI, no JVD. No pulse deficits. Respiratory: Lungs have equal breath sounds bilaterally, clear to auscultation and percussion. No rales, rhonchi or wheezes noted. No increased work of breathing, no retractions or nasal flaring. Abdomen/GI: Soft, non-tender, with normal bowel sounds. No distension or tympany. No guarding or rebound. No evidence of tenderness throughout. Vital Signs: 09/27 20:24 BP 117 / 60; Pulse 89; Resp 18 S; Temp 97.6(TE); Pulse Ox 96% on R/A; Weight 117.93 kg ca1 (R); Height 5 ft. 11 in. (180.34 cm) (R); Pain 9/10; 22:07 BP 116 / 75; Pulse 75; Resp 16; Pulse Ox 95% ; rv 23:00 BP 115 / 79; Pulse 78; Resp 17; Pulse Ox 97% on R/A; rv 09/28 00:47 BP 121 / 82; Pulse 76; Resp 16; Pulse Ox 96% on R/A; rv 09/27 20:24 Body Mass Index 36.26 (117.93 kg, 180.34 cm) ca1 MDM: 09/27 21:20 Patient medically screened. ma2 09/28 00:36 Differential diagnosis: gastroesophageal reflux disease (GERD), hiatal hernia, ma2 pleurisy, pneumonia. RUDOLPH Risk Score: not applicable. Data reviewed: vital signs, nurses notes. Counseling: I had a detailed discussion with the patient and/or guardian regarding: the historical points, exam findings, and any diagnostic results supporting the discharge/admit diagnosis, the presence of at least one elevated blood pressure reading (>120/80) during this emergency department visit, the need for outpatient follow up. 01:53 ED course: he might have small left breast abscess, none palpable on exam but he has a ma2 defined tenderness area and states he had a lump that has gotten smaller in size. not draining though.. his pcp ordered a breast US that was not done yet.. since it is late at night here and no us available, i advised him to get outpatient us and f/u with his pcp. i advised him to return to er if his lump got larger or he develop any skin changes or any new symptoms, in that case i informed him to come during the day time . 09/27 21:23 Order name: Basic Metabolic Panel; Complete Time: 23:53 ma2 09/27 21:23 Order name: CBC with Diff; Complete Time: 22:31 ma2 09/27 21:23 Order name: LFT's; Complete Time: 23:53 ma2 09/27 21:23 Order name: Magnesium; Complete Time: 23:53 ma2 09/27 21:23 Order name: NT PRO-BNP; Complete Time: 23:53 ma2 09/27 21:23 Order name: PT-INR; Complete Time: 22:31 ma2 09/27 20:33 Order name: EKG; Complete Time: 20:34 ca1 09/27 20:33 Order name: EKG - Nurse/Tech; Complete Time: 20:37 ca1 09/27 21:23 Order name: Troponin (emerg Dept Use Only); Complete Time: 23:53 ma2 09/27 21:23 Order name: XRAY Chest (1 view) [facility] 09/27 21:23 Order name: Cardiac monitoring; Complete Time: 22:12 ma2 09/27 21:23 Order name: IV Saline Lock; Complete Time: 22:12 ma2 09/28 00:08 Order name: Troponin (emerg Dept Use Only) rv 09/28 00:54 Order name: Troponin (Emerg Dept Use Only); Complete Time: 01:53 EDMD 09/27 21:23 Order name: Labs collected and sent; Complete Time: 22:12 ma2 09/27 21:23 Order name: O2 Per Protocol; Complete Time: 22:12 ma2 09/27 21:23 Order name: O2 Sat Monitoring; Complete Time: 22:12 ma2 Administered Medications: No medications were administered Disposition: 09/28/20 01:57 Discharged to Home. Impression: Other chest pain - chest wall/ soft tissue pain . - Condition is Stable. - Discharge Instructions: Chest Wall Pain. - Prescriptions for Diclofenac Sodium 75 mg Oral Tablet Sustained Release - take 1 tablet by ORAL route 2 times per day; 30 tablet. - Medication Reconciliation Form, Thank You Letter, Antibiotic Education, Prescription Opioid Use form. - Follow up: Private Physician; When: Tomorrow; Reason: Continuance of care. Signatures: Dispatcher [employer] EDMS Rosa Roberto MD MD mn2 Stewart King RN RN rr5 Priyanka Esquivel RN RN ca1 Corrections: (The following items were deleted from the chart) 02:06 01:57 09/28/2020 01:57 Discharged to Home. Impression: Other chest pain - chest wall/ rr5 soft tissue pain . Condition is Stable. Forms are Medication Reconciliation Form, Thank You Letter, Antibiotic Education, Prescription Opioid Use. Follow up: Private Physician; When: Tomorrow; Reason: Continuance of care. ma2
--- NOTE | 2020-09-28 01:57 | ER ---
Nurse's Notes [facility] Name: Tc Albarran Age: 40 yrs Sex: Male : 1980 Arrival Date: 09/27/2020 Time: 20:16 Bed 19 Private MD: Diagnosis: Other chest pain-chest wall/ soft tissue pain Presentation: 09/27 20:24 Chief complaint: Patient states: I have a lump on the L breast, started about 3 weeks ca1 ago. I am supposed to go get an ultrasound of this. A week ago, chest pains started, L sided and radiates to the L shoulder and L arm. This morning, felt numbness L chest area, L shoulder. Denies injury to chest. Denies cough. Coronavirus screen: Client denies travel out of the [place] in the last 14 days. At this time, the client does not indicate any symptoms associated with coronavirus-19. Ebola Screen: Patient negative for fever greater than or equal to 101.5 degrees Fahrenheit, and additional compatible Ebola Virus Disease symptoms Patient denies exposure to infectious person. Patient denies travel to an Ebola-affected area in the 21 days before illness onset. No symptoms or risks identified at this time. Initial Sepsis Screen: Does the patient meet any 2 criteria? No. Patient's initial sepsis screen is negative. Does the patient have a suspected source of infection? No. Patient's initial sepsis screen is negative. Risk Assessment: Do you want to hurt yourself or someone else? Patient reports no desire to harm self or others. Onset of symptoms was September 27, 2020. 20:24 Method Of Arrival: Ambulatory ca1 20:24 Acuity: FRANTZ 3 ca1 Historical: - Allergies: 20:28 No Known Allergies; ca1 - Home Meds: 20:28 None [Active]; ca1 - PMHx: 20:28 High Cholesterol; Hyperlipidemia; ca1 - PSHx: 20:28 None; ca1 - Immunization history:: Adult Immunizations up to date, Flu vaccine is up to date. - Social history:: Smoking status: Patient denies any tobacco usage or history of. Patient/guardian denies using alcohol, street drugs, The patient lives with family. - Family history:: not pertinent. Screenin:05 Abuse screen: Denies threats or abuse. Denies injuries from another. Nutritional rv screening: No deficits noted. Tuberculosis screening: No symptoms or risk factors identified. Fall Risk None identified. Assessment: 22:04 General: Appears comfortable, Behavior is calm, cooperative. Pain: Complains of pain in rv anterior aspect of left upper chest Pain does not radiate. Pain began ONE WEEK. Neuro: Level of Consciousness is awake, alert, obeys commands, Oriented to person, place, time, situation. Cardiovascular: Patient's skin is warm and dry. Rhythm is sinus rhythm. Respiratory: Airway is patent Respiratory effort is even, unlabored, Respiratory pattern is regular, Breath sounds are clear bilaterally. Derm: Skin is intact. 09/28 00:48 Reassessment: PATIENT UPDATED ON THE TEST RESULTS. WAITING REPEAT TROPONIN RESULT. rv Vital Signs: 09/27 20:24 BP 117 / 60; Pulse 89; Resp 18 S; Temp 97.6(TE); Pulse Ox 96% on R/A; Weight 117.93 kg ca1 (R); Height 5 ft. 11 in. (180.34 cm) (R); Pain 9/10; 22:07 BP 116 / 75; Pulse 75; Resp 16; Pulse Ox 95% ; rv 23:00 BP 115 / 79; Pulse 78; Resp 17; Pulse Ox 97% on R/A; rv 09/28 00:47 BP 121 / 82; Pulse 76; Resp 16; Pulse Ox 96% on R/A; rv 09/27 20:24 Body Mass Index 36.26 (117.93 kg, 180.34 cm) ca1 ED Course: 09/27 20:16 Patient arrived in ED. am2 20:27 Triage completed. ca1 20:28 Arm band placed on right wrist. ca1 21:20 Rosa Roberto MD is Attending Physician. ma2 21:20 Damian Martinez RN is Primary Nurse. rv 21:29 Inserted saline lock: 20 gauge in right antecubital area, using aseptic technique. rv Blood collected. 21:29 Initial lab(s) drawn, by me, sent to lab. rv 21:58 XRAY Chest (1 view) In Process Unspecified. EDMS 22:05 Patient has correct armband on for positive identification. Placed in gown. Bed in low rv position. Side rails up X 1. territory service representative on. Pulse ox on. NIBP on. Administered Medications: No medications were administered Outcome: 09/28 01:57 Discharge ordered by . ma2 02:05 Discharged to home ambulatory. rr5 02:05 Condition: good 02:05 Discharge instructions given to patient, Instructed on discharge instructions, follow up and referral plans. no drinking with medication, no driving heavy equipment, medication usage, Demonstrated understanding of instructions, follow-up care, medications, Prescriptions given X 1. 02:06 Patient left the ED. rr5 Signatures: Dispatcher [employer] EDMI Kendy Juarez Mohammad, MD MD ma2 Damian Martinez RN RN Stewart Walter RN RN rr5 Priyanka Esquivel RN RN ca1
--- NOTE | 2020-09-28 07:45 | RAD REPORT ---
EXAM DESCRIPTION: [place] Single View09/27/2020 9:58 pm CLINICAL HISTORY: Chest pain COMPARISON: 2018 FINDINGS: The lungs appear clear of acute infiltrate. The heart is normal size IMPRESSION: No acute abnormalities displayed
--- NOTE | 2020-09-28 12:41 | EKG ---
Test Date: 2020-09-27 Test Time: 20:36:03 Television Anchor: REDD MEASUREMENT RESULTS: Intervals: Rate: 86 CA: 136 QRSD: 92 QT: 380 QTc: 454 [place]: P: 37 CA: 136 QRS: 17 T: 27 INTERPRETIVE STATEMENTS: Normal sinus rhythm Normal ECG Compared to ECG 01/14/2019 21:21:45 No significant changes Electronically Signed On 09-28-20 12:39:30 MATERIAL CHECKER by John Lyn
[2020-09-29 04:06] VITALS: TEMP 97.6
[2020-09-29 04:10] VITALS: BP 121/82; O2SAT 96
== END 2020-09-28 02:06 | disposition home or self-care (01) ==
LOC: ER 20:12
DX: R07.89 Other chest pain (principal)
CPT/HCPCS: 36415; 71045; 80048; 80076; 83735; 83880; 84484; 85025; 85610; 93005; 99284

== ENCOUNTER → 2023-11-23 | Emergency (ER) | payer SELFPAY ==
[~2023-11-23] MED LIST: AMOX/K CLAV 875 MG TAB ONE; IBUPROFEN 400 MG TAB ONE; TRAMADOL HCL 50 MG TAB ONE
--- OUTSIDE RECORDS SUMMARY | 2023-11-23 10:52 | XMS REPORT | Continuity of Care Document ---
Author Name Unknown Address [address] [facility] [address] [place] [address] [facility] thconnect Address [address] [facility] [place] [address] Care Team Providers Care Ore Buyer Name Role Phone PCP, PATIENT DOES NOT HAVE A Primary Care Physic timur Unavailable BUTCH ABRAMS Attending Clinician Unavailable Butch Abrams MD Attending Clinician BUTCH ABRAMS Admitting Clinician Unavailable Payers Payer Name Policy Type Policy Number Effective Date Expirati on Date Source [facility] [id number] 2021 00:00:00 Allergies, Adverse Reactions, Alerts Allergy Name Allergy Type Status Severity Reaction(s) Onset Date Inactive Date Treating Clinician Comments Source NO KNOWN ALLERGIE S Drug Class Active [facility] Social History Social Habit Start Date Stop Date Quantity Comments Source Exposure to SARS-CoV-2 (event) 2023-02-16 00:00:00 2023-02-26 06:59:00 Not sure [facility] Sex Assigned At 1980 00:00:00 1980 00:00:00 [facility] Smoking Status Start Date Stop Date Source Tobacco smoking consumption unknown [facility] Medications Ordered Medication Name Filled Medication Name Start Date Stop Date Current Medication? Ordering Clinician Indication Dosage Frequency Signature (SIG) Comments Components Source dexamethaso ne (DECADRON PHOSPHATE) injection 10 mg 02-26 14:15: 00 02-26 14:15 :00 No 10mg 10 mg, Intramuscu lar, ONCE, 1 dose, On Sun02/26/23 at 0915, [facility] colchicine (COLCRYS) tablet 1.2 mg 02-26 14:15: 00 02-26 14:11 :00 No 1.2mg 1.2 mg, Oral, ONCE NOW, 1 dose, On Sun02/26/23 at 0915, [facility] gabapentin (NEURONTIN) capsule 300 mg 02-26 13:30: 00 02-26 14:11 :00 No 300mg 300 mg, Oral, ONCE, 1 dose, On Sun02/26/23 at 0830, [facility] HYDROcodone -acetaminop hen (NORCO 5) 5-325 mg tablet 1 tablet 02-26 13:30: 00 02-26 14:11 :00 No 1{tbl} 1 tablet, Oral, ONCE, 1 dose, On Sun02/26/23 at 0830, [facility] ketorolac (TORADOL) injection 60 mg 02-26 13:00: 00 02-26 12:31 :00 No 60mg 60 mg, Intramuscu lar, ONCE NOW, 1 dose, On Sun02/26/23 at 0800, [facility] meloxicam 15 mg tablet 02-26 00:00: 00 Yes [id number] 15mg Take 1 tablet by mouth daily. [facility] predniSONE 20 mg tablet 02-26 00:00: 00 Yes [id number] Take 2 tablets PO daily [facility] colchicine 0.6 mg tablet 02-26 00:00: 00 Yes [id number] Take one tablet PO BID [facility] gabapentin (NEURONTIN) 100 mg capsule 02-26 00:00: 00 Yes [id number] 100mg Take 1 capsule by mouth 3 (three) times daily. [facility] methylPREDN ISolone (MEDROL, SABRINA,) 4 mg tablets 2-12 00:00: 00 Yes Take by mouth SEE-INSTRU CTIONS. follow package directions [facility] naproxen sodium (ANAPROX DS) 550 mg tablet 11-19 00:00: 00 Yes 550mg Take 1 tablet by mouth 2 (two) times daily with meals. [facility] benzonatate (TESSALON) 200 mg capsule 04-24 00:00: 00 Yes 200mg Take 1 capsule by mouth 3 (three) times daily as needed for Cough. [facility] ondansetron (ZOFRAN, HYDROCHLORI DE,) 4 mg tablet 04-24 00:00: 00 Yes 4mg Take 1 tablet by mouth every 8 (eight) hours as needed for Nausea and Vomiting (N/V). [facility] loperamide (ANTI-DIARR HEAL, LOPERAMIDE, ) 2 mg capsule 04-23 00:00: 00 Yes 2mg Take 1 Cap by mouth every 6 (six) hours as needed for Diarrhea. [facility] ondansetron (ZOFRAN-ODT ) 4 mg disintegrat ing tablet 04-23 00:00: 00 Yes 4mg Take 1 Tab by mouth every 8 (eight) hours as needed for Nausea and Vomiting (N/V). [facility] Vital Signs Vital Name Observation Time Observation Value Comments S joe Systolic blood pressure 2023-02-26 14:11:00 121 mm[Hg] [facility] Diastolic blood pressure 2023-02-26 14:11:00 81 mm[Hg] [facility] Heart rate 2023-02-26 14:11:00 85 /min [facility] Respiratory rate 2023-02-26 14:11:00 18 /min [facility] Oxygen saturation in Arterial blood by Pulse oximetry 2023-02-26 14:11:00 100 /min [facility] Body temperature 2023-02-26 11:54:00 36.78 Nisreen [facility] Body height 2023-02-26 11:54:00 177.8 cm [facility] Body weight 2023-02-26 11:54:00 111.131 kg [facility] BMI 2023-02-26 11:54:00 35.15 kg/m2 [facility] Procedures Procedure Date / Time Performed Performing Clinicia n Source XR TIBIA FIBULA 2 VW RIGHT 2023-02-26 13:03:47 Butch Abrams [facility] URIC ACID 2023-02-26 12:35:00 Butch Abrams [facility] ASSIGNMENT OF BENEFITS 2023-02-26 12:17:12 Docto r Unassigned, [place] [facility] Encounters Start Date/Time End Date/Time Encounter Type Admission Type Attending [facility] Facility Care Department Encounter ID Source 2023-03-21 08:14:10 2023-03-21 08:14:10 Outpatient [facility] [id number] Oseas Gandhi 2023-03-15 09:03:13 2023-03-15 09:03:13 Outpatient [facility] [id number] Oseas Gandhi 2023-03-13 08:33:19 2023-03-13 08:33:19 Outpatient [facility] [id number] Oseas Gandhi 2023-02-26 06:56:00 2023-02-26 09:26:00 Emergency X BUTCH ABRAMS [facility] ERT [id number] [facility] 2023-02-26 06:56:00 2023-02-26 09:26:00 Emergency Butch Abrams [facility] [id number] [facility] 2022-10-26 10:56:34 2022-10-26 10:56:34 Outpatient [facility] [id number] Oseas Melchor Hiram 2022-10-25 10:57:52 2022-10-25 10:57:52 Outpatient [facility] [id number] Oseas Melchor Hiram 2022-08-17 08:17:10 2022-08-17 08:17:10 Outpatient [facility] [id number] Oseas Jill Hiram Results Test Description Test Time Test Comments Results Result Co mments Source [id number] 06:51:41* Test Item Value Reference Range Interpretation Comme nts TRANSFERRIN (test code = 4936) 294 MG/DL 200-360 [id number] 06:51:41* Test Item Value Reference Range Interpretation Comme nts LDH (test code = 2224) 179 U/L 135-225 UNLESS OTHERWISE INDICATED, ALL TESTING PERFORMED AT [facility] [address] [place] [address] SWEEPER DRIVER: EVERT PAYTON M.D. [place] NUMBER [id number] [facility] [place]. [id number] HEPATITIS PANEL, [id number] 04:46:11* Test Item Value Reference Range Interpretation Comme nts HEPATITIS A IgM (test code = 72849) NON-REACTIVE NON-REACTIVE HEPATITIS B CORE IgM (test code = 4644) NON-REACTIVE NON-REACTIVE HEPATITIS B SURF AG (test code = 2739) NON-REACTIVE NON-REACTIVE HEPATITIS C ANTIBODY (test code = 4675) NON-REACTIVE NON-REACTIVE INTERPRETATION HEPATITIS A: (test code = 2552) (NOTE) Hepatitis A serology shows no evidence of acute hepatitis A. INTERPRETATION HEPATITIS B: (test code = 94368) (NOTE) Hepatitis B serology shows no evidence of acute hepatitis B andno indication of exposure to hepatitis B virus in the previous luda eight months. INTERPRETATION HEPATITIS C: (test code = 46411) (NOTE) Hepatitis C serology shows no evidence of exposure to hepatitisC virus at this time. It can take up to 12 months after exposure tothe hepatitis C virus for antibodies to become detectable in the blood in certain patients. IRON BINDING CAPACITY AND IRON AND % [id number] 04:14:59* Test Item Value Reference Range Interpretation Comme nts IRON, SERUM (test code = 2222) 89 UG/DL 59-158 UNSATURATED IBC (test code = 69137) 275 UG/DL 112-347 CALC TOTAL IBC (test code = 2077) 364 UG/DL 250-450 CALC % IRON SAT (test code = 2079) 24 % 20-50 BILIRUBIN, NON-, TOTAL AND [id number] 04:14:59* Test Item Value Reference Range Interpretation Comme nts BILIRUBIN, TOTAL (test code = 220) 1.0 MG/DL See_Comment [Automated me ssage] The system which generated this result transmitted reference range: <=1.2. The reference range was not used to interpret this result as normal/abnormal. BILIRUBIN, DIRECT (test code = 2021) 0.2 MG/DL 0.0-0.3 CALC INDIR BILIRUBIN (test code = 2036) 0.8 MG/DL 0.0-0.7 H [id number] 04:12:33* Test Item Value Reference Range Interpretation Comme nts FERRITIN (test code = 2074) 289 NG/ML 30-400 RETICULOCYTE WITH [id number] 02:59:28* Test Item Value Reference Range Interpretation Comme nts RETICULOCYTE COUNT (test cod e = 1018) 1.64 % 0.80-2.40 ABSOLUTE RETICULOCYTE (test code = 29748) 94.1 K/UL 35.0-110.0 COMPREHENSIVE METABOLIC [id number] 17:18:13* Test Item Value Reference Range Interpretation Comme nts GLUCOSE (test code = 2216) 90 MG/DL 70-99 BUN (test code = 2207) 12 MG/DL 6-20 CREATININE (test code = 4) 1.05 MG/DL 0.80-1.40 eGFR (2020 CKD-EPI) (test code = 36564) 91 ML/MIN/1.73 >60 CALC BUN/CREAT (test code = 2235) 11 RATIO 6-28 SODIUM (test code = 2231) 144 MEQ/L 133-146 POTASSIUM (test code = 2228) 4.2 MEQ/L 3.5-5.4 CHLORIDE (test code = 2215) 101 MEQ/L 95-107 CARBON DIOXIDE (test code = 2206) 24 MEQ/L 19-31 CALCIUM (test code = 2209) 10.0 MG/DL 8.5-10.5 PROTEIN, TOTAL (test code = 222) 7.7 G/DL 6.1-8.3 ALBUMIN (test code = 2201) 4.6 G/DL 3.5-5.2 CALC GLOBULIN (test code = 2240) 3.1 G/DL 1.9-3.7 CALC A/G RATIO (test code = 2234) 1.5 RATIO 1.0-2.6 BILIRUBIN, TOTAL (test code = 2206) 1.7 MG/DL See_Comment H [Automated me ssage] The system which generated this result transmitted reference range: <=1.2. The reference range was not used to interpret this result as normal/abnormal. ALKALINE PHOSPHATASE (test code = 2204) 164 U/L 40-119 H AST (test code = 2218) 52 U/L 9-50 H ALT (test code = 2219) 99 U/L 5-50 H HEPATITIS C [id number] 06:58:28* Test Item Value Reference Range Interpretation Comme nts HEPATITIS C ANTIBODY (test c ode = 4675) NON-REACTIVE NON-REACTIVE HIV 1/2 4TH GEN, RFLX [id number] 06:58:28* Test Item Value Reference Range Interpretation Comme nts HIV 1/2 4TH GEN, RFLX CONF (test code = 3514) NON-REACTIVE NON-REACTIVE UNLESS OTHERWISE INDICATED, ALL TESTING PERFORMED AT [facility] [address] [place] [address] SWEEPER DRIVER: EVERT PAYTON M.D. [place] NUMBER [id number] [facility] [place]. [id number] HEMOGLOBIN [id number] 06:51:32* Test Item Value Reference Range Interpretation Comme [facility] HEMOGLOBIN A1c (test code = 10936) 5.7 % 4.2-5.6 H EMIRATI DIABETE S ASSOCIATION GUIDELINES FOR HGB A1C: PREDIABETES/INCREASED RISK . . . . . . . 5.7-6.4% DIAGNOSIS OF DIABETES . . . . . . . . . >=6.5% WITH CONFIRMATION OR APPROPRIATE SYMPTOMS NOTE: ASSAY MAY BE AFFECTED BY HEMOGLOBINOPATHIES (SICKLE CELL ANEMIA, S-C DISEASE, OTHERS) OR ARTIFICIALLY LOWERED BY DECREASED RED CELL SURVIVAL (HEMOLYTIC ANEMIAS, BLOOD LOSS, ETC.). CONSIDER ALTERNATE TESTING OR LABORATORY CONSULTATION. CBC W/AUTO DIFF WITH [id number] 04:17:39* Test Item Value Reference Range Interpretation Comme nts WBC (test code = 1001) 7.6 K/UL 3.5-11.0 RBC (test code = 1002) 5.60 M/UL 4.50-6.10 HEMOGLOBIN (test code = 1003) 17.3 G/DL 13.5-17.0 H HEMATOCRIT (test code = 1004) 50.0 % 40.0-51.0 MCV (test code = 1005) 89.3 fL 80.0-99.0 MCH (test code = 1006) 30.9 PG 25.0-33.0 MCHC (test code = 1007) 34.6 G/DL 31.0-36.0 RDW (test code = 1038) 13.0 % 11.5-15.0 NEUTROPHILS (test code = 1008) 68.2 % LYMPHOCYTES (test code = 1010) 21.0 % MONOCYTES (test code = 1011) 5.8 % EOSINOPHILS (test code = 1012) 3.9 % BASOPHILS (test code = 1013) 0.7 % IMMATURE GRANULOCYTES (test code = 1036) 0.4 % NUCLEATED RBCS (test code = 1065) 0.0 /100 WBC'S See_Comment [Automated messa ge] The system which generated this result transmitted reference range: 0.0. The reference range was not used to interpret this result as normal/abnormal. PLATELET COUNT (test code = 1015) 215 K/UL 130-400 ABSOLUTE NEUTROPHILS (test code = 1066) 5.20 K/UL 1.50-7.50 ABSOLUTE LYMPHOCYTES (test code = 1067) 1.60 K/UL 1.00-4.00 ABSOLUTE MONOCYTES (test code = 1068) 0.44 K/UL 0.20-1.00 ABSOLUTE EOSINOPHILS (test code = 1040) 0.30 K/UL 0.00-0.50 ABSOLUTE BASOPHILS (test code = 1069) 0.05 K/UL 0.00-0.20 ABS IMMATURE GRANULOCYTES (test code = 1020) 0.03 K/UL 0.00-0.10 ABS NUCLEATED RBCS (test code = 02929) 0.00 K/UL 0.00-0.11 [id number] 05:30:18* Test Item Value Reference Range Interpretation Comme nts AMYLASE (test code = 2205) 89 U/L 28-100 [id number] 05:30:18* Test Item Value Reference Range Interpretation Comme nts LIPASE (test code = 2057) 29 U/L 13-60 UNLESS OTHERWISE INDICATED, [facility] [address] [place] [id number] SWEEPER DRIVER: MARIANN CHANEL M.D. CLIA NUMBER [id number] [place]. [id number] CBC W/AUTO DIFF WITH [id number] 05:21:06* Test Item Value Reference Range Interpretation Comme nts WBC (test code = 1001) 6.1 K/UL 3.5-11.0 RBC (test code = 1002) 5.35 M/UL 4.50-6.10 HEMOGLOBIN (test code = 1003) 16.7 G/DL 13.5-17.0 HEMATOCRIT (test code = 1004) 46.9 % 40.0-51.0 MCV (test code = 1005) 87.7 fL 80.0-99.0 MCH (test code = 1006) 31.2 PG 25.0-33.0 MCHC (test code = 1007) 35.6 G/DL 31.0-36.0 RDW (test code = 1038) 12.7 % 11.5-15.0 NEUTROPHILS (test code = 1008) 58.0 % NOTE: EFFECTIVE 08/29/2021, REFERENCE INTERVALS AND FLAGGING FORRELATIVE (%) WBC DIFFERENTIAL WILL BE ELIMINATED REDUNDANT TOABSOLUTE COUNTS.SEE [email or web address]_reporting_upda te LYMPHOCYTES (test code = 1010) 28.0 % MONOCYTES (test code = 1011) 7.9 % EOSINOPHILS (test code = 1012) 4.6 % BASOPHILS (test code = 1013) 0.7 % IMMATURE GRANYLOCYTES (test code = 1036) 0.8 % NUCLEATED RBCS (test code = 1065) 0.0 /100 WBC'S See_Comment [Automated message] The system which generated this result transmitted reference range: 0.0. The reference range was not used to interpret this result as normal/abnormal. PLATELET COUNT (test code = 1015) 231 K/UL 130-400 ABSOLUTE NEUTROPHILS (test code = 1066) 3.53 K/UL 1.50-7.50 ABSOLUTE LYMPHOCYTES (test code = 1067) 1.70 K/UL 1.00-4.00 ABSOLUTE MONOCYTES (test code = 1068) 0.48 K/UL 0.20-1.00 ABSOLUTE EOSINOPHILS (test code = 1040) 0.28 K/UL 0.00-0.50 ABSOLUTE BASOPHILS (test code = 1069) 0.04 K/UL 0.00-0.20 ABS IMMATURE GRANULOCYTES (test code = 1020) 0.05 K/UL 0.00-0.10 ABS NUCLEATED RBCS (test code = 11496) 0.00 K/UL 0.00-0.11 LIPID [id number] 05:03:40* Test Item Value Reference Range Interpretation Comme nts CHOLESTEROL (test code = 2210) 176 MG/DL <200 TRIGLYCERIDES (test code = 2232) 313 MG/DL <150 H HDL CHOLESTEROL (test code = 2220) 38 MG/DL >39 L CALC LDL CHOL (test code = 2237) 96 MG/DL <100 NOTE: CALCULATED LDL IS BASED ON KRISTI-ROYAL METHOD WHICHINCLUDES ADJUSTABLE TRIGLYCERIDE:VLDL CHOLESTEROL RATIO.THIS FACTOR VARIES BY MEASURED TRIGLYCERIDE AND NON-HDLCHOLESTEROL CONCENTRATIONS WITH INCREASED CALCULATED LDL SEENIN HIGHER TRIGLYCERIDE OR LOWER NON-HDL SPECIMENS. FOR MOREINFORMATION, SEE CLIENT ANNOUNCEMENT AT [email or web address]-[email or web address] RISK RATIO LDL/HDL (test code = 2238) 2.53 RATIO <3.55 COMPREHENSIVE METABOLIC [id number] 05:03:40* Test Item Value Reference Range Interpretation Comme nts GLUCOSE (test code = 2217) 92 MG/DL 70-99 BUN (test code = 2208) 11 MG/DL 6-20 CREATININE (test code = 2214) 0.89 MG/DL 0.80-1.40 EFFECTIVE 09/19/2021, [facility] HAS IMPLEMENTED THE NKF-ASN RECOMMENDED KD-EPI EGFR REFIT CALCULATION THAT DOES NOT INCLUDE A COEFFICIENT FORRACE. FOR MORE INFORMATION, SEE ANNOUNCEMENT [email or web address]_[email or web address] eGFR (2020 CKD-EPI) (test code = 33353) 110 ML/MIN/1.73 >60 CALC BUN/CREAT (test code = 2235) 12 RATIO 6-28 SODIUM (test code = 223) 141 MEQ/L 133-146 POTASSIUM (test code = 2228) 4.1 MEQ/L 3.5-5.4 CHLORIDE (test code = 2215) 101 MEQ/L 95-107 CARBON DIOXIDE (test code = 2205) 28 MEQ/L 19-31 CALCIUM (test code = 2208) 9.7 MG/DL 8.5-10.5 PROTEIN, TOTAL (test code = 2228) 7.8 G/DL 6.1-8.3 ALBUMIN (test code = 2200) 4.4 G/DL 3.5-5.2 CALC GLOBULIN (test code = 2240) 3.4 G/DL 1.9-3.7 CALC A/G RATIO (test code = 2234) 1.3 RATIO 1.0-2.6 BILIRUBIN, TOTAL (test code = 2207) 1.4 MG/DL See_Comment H [Automated me ssage] The system which generated this result transmitted reference range: <=1.2. The reference range was not used to interpret this result as normal/abnormal. ALKALINE PHOSPHATASE (test code = 220) 139 U/L 40-119 H AST (test code = 2218) 46 U/L 9-50 ALT (test code = 2219) 87 U/L 5-50 H
--- NOTE | 2023-11-23 11:07 | EDPHYS ---
Physician Documentation [facility] Name: Tc Albarran Age: 43 yrs Sex: Male : 1980 Arrival Date: 11/23/2023 Time: 10:49 Bed Waiting Private MD: ED Physician Serge Shea HPI: 11/23 11:03 This 43 yrs old Male presents to ER via Unassigned with complaints of Ear Pain.rn 11:03 The patient presents with pain. The complaints affect the left ear. Onset: The rn symptoms/episode began/occurred 3 day(s) ago. Modifying factors: The symptoms are alleviated by nothing, the symptoms are aggravated by pulling on ears. Severity of symptoms: At their worst the symptoms were moderate in the emergency department the symptoms are unchanged. The patient has experienced a previous episode. Reports left ear pain for 3 days, worse today. No fever. No drainage. No trauma. Did not insert anything into the ear. Reports pain radiating down the left jaw now. No trouble breathing or swallowing.. Historical: - Allergies: 11:06 No Known Allergies; jl7 - Home Meds: 11:06 None [Active]; jl7 - PMHx: 11:06 High Cholesterol; Hyperlipidemia; jl7 - PSHx: 11:06 None; jl7 - Immunization history:: Adult Immunizations unknown. - Social history:: Smoking status: Patient denies any tobacco usage or history of. - Family history:: not pertinent. - Hospitalizations: : No recent hospitalization is reported. ROS: 11:03 Constitutional: Negative for fever, chills, and weight loss, Eyes: Negative for injury, rn pain, redness, and discharge, ENT: Positive for left ear pain Neck: Negative for injury, pain, and swelling, Cardiovascular: Negative for chest pain, palpitations, and edema, Respiratory: Negative for shortness of breath, cough, wheezing, and pleuritic chest pain, Neuro: Negative for headache, weakness, numbness, tingling, and seizure, Exam: 11:03 Constitutional: This is a well developed, well nourished patient who is awake, alert, rn and in no acute distress. Head/Face: Normocephalic, atraumatic. Eyes: Lids and lashes normal. Conjunctiva and sclera are non-icteric and not injected. Cornea within normal limits. Periorbital areas with no swelling, redness, or edema. ENT: Left external auditory canal with swelling, erythema, mild purulence of canal. No air bubbles or evidence of perforation of TM. Mild swelling and lymphadenopathy on the left side of the jaw and neck. No crepitus. No abscess or fluctuance noted. No trismus. Neck: No Meningismus. Vital Signs: 11:00 BP 127 / 93; Pulse 93; Resp 17; Temp 98.6; Pulse Ox 95% ; Weight 113.4 kg; Height 5 ft. jl7 10 in. ; Pain 10; 11:00 Body Mass Index 35.87 (113.40 kg, 177.8 cm) jl7 11:00 Pain Scale: Adult jl7 MDM: 10:55 Patient medically screened. rn 11:03 Differential diagnosis: otitis media, otitis externa, acute otalgia, serotympanum. Data rn reviewed: vital signs, nurses notes, and as a result, I will discharge patient. Counseling: I had a detailed discussion with the patient and/or guardian regarding the historical points, exam findings, and any diagnostic results supporting the discharge/admit diagnosis, the need for outpatient follow up, to return to the emergency department if symptoms worsen or persist or if there are any questions or concerns that arise at home. Special discussion: I discussed with the patient/guardian in detail that at this point there is no indication for admission to the hospital. It is understood, however, that if the symptoms persist or worsen the patient needs to return immediately for re-evaluation. Based on the history and exam findings, there is no indication for further emergent testing or inpatient evaluation. I discussed with the patient/guardian the need to see the ENT specialist for further evaluation of the symptoms. Administered Medications: 11:15 Drug: Amoxicillin-Clavulanate PO 875 mg PO once Route: PO; aa5 11:15 Drug: traMADol PO 50 mg PO once Route: PO; aa5 11:15 Drug: Ibuprofen PO 800 mg PO once Route: PO; aa5 Disposition Summary: 11/23/23 11:06 Discharge Ordered Notes: Location: Home rn Problem: new rn Symptoms: are unchanged rn Condition: Stable rn Diagnosis - Other infective otitis externa, left ear rn - Otitis media in diseases classified elsewhere, left ear rn Followup: rn - With: Private Physician - When: As needed - Reason: Recheck today's complaints, Re-evaluation by your physician Discharge Instructions: - Discharge Summary Sheet rn - Ear Drops, Adult rn - Otitis Media, Adult rn - Otitis Externa rn Forms: - Medication Reconciliation Form rn - Thank You Letter rn - Antibiotic filer metal patterns - Prescription Opioid Use rn - Patient Portal Instructions rn - Leadership Thank You Letter rn Prescriptions: - Augmentin 875-125 mg Oral Tablet - take 1 tablet ORAL route every 12 hours for 10 days; 20 tablet; Refills: 0, rn Product Selection Permitted - Cortisporin-TC 3.3-3-10-0.5 mg/mL Otic drops, suspension - instill 4 drops OTIC route every 6 hours for 10 days; 1 unit; Refills: 0, rn Product Selection Permitted - Tramadol 50 mg Oral Tablet - take 1 tablet ORAL route every 8 hours as needed; 12 tablet; Refills: 0, rn Product Selection Permitted - Ciprodex 0.3-0.1 % Otic drops, suspension - instill 4 drops OTIC route every 12 hours for 7 days , for ears ONLY; 1 unit; rn Refills: 0, Product Selection Permitted Signatures: Serge Shea MD MD rn Annel Lopez, RN RN aa5 Kristal Marquez RN RN jl7
--- NOTE | 2023-11-23 11:18 | ER ---
Nurse's Notes [facility] Name: Tc Albarran Age: 43 yrs Sex: Male : 1980 Arrival Date: 11/23/2023 Time: 10:49 Bed Waiting Private MD: Diagnosis: Other infective otitis externa, left ear;Otitis media in diseases classified elsewhere, left ear Presentation: 11/23 11:00 Chief complaint: Patient states: Left ear pain x 3 days, left jaw pain and swelling. jl7 11:00 Coronavirus screen: At this time, the client does not indicate any symptoms associated jl7 with coronavirus-19. Ebola Screen: No symptoms or risks identified at this time. Initial Sepsis Screen: Does the patient meet any 2 criteria? No. Patient's initial sepsis screen is negative. Does the patient have a suspected source of infection? No. Patient's initial sepsis screen is negative. Risk Assessment: Do you want to hurt yourself or someone else? Patient reports no desire to harm self or others. Onset of symptoms was November 20, 2023. 11:00 Method Of Arrival: Ambulatory jl7 11:00 Acuity: FRANTZ 4 jl7 Triage Assessment: 11:06 General: Appears in no apparent distress. uncomfortable, Behavior is calm, cooperative, jl7 appropriate for age. Pain: Complains of pain in mouth and left ear Pain currently is 10 out of 10 on a pain scale. EENT: swelling noted to left cheek. Neuro: Level of Consciousness is awake, alert, obeys commands, Oriented to person, place, time, situation. Cardiovascular: Patient's skin is warm and dry. Respiratory: Airway is patent Respiratory effort is even, unlabored, Respiratory pattern is regular, symmetrical. Derm: Skin is pink, warm \T\ dry. Historical: - Allergies: 11:06 No Known Allergies; jl7 - Home Meds: 11:06 None [Active]; jl7 - PMHx: 11:06 High Cholesterol; Hyperlipidemia; jl7 - PSHx: 11:06 None; jl7 - Immunization history:: Adult Immunizations unknown. - Social history:: Smoking status: Patient denies any tobacco usage or history of. - Family history:: not pertinent. - Hospitalizations: : No recent hospitalization is reported. Assessment: 11:15 Reassessment: Patient is alert, oriented x 3, equal unlabored respirations, skin aa5 warm/dry/pink. Vital Signs: 11:00 BP 127 / 93; Pulse 93; Resp 17; Temp 98.6; Pulse Ox 95% ; Weight 113.4 kg; Height 5 ft. jl7 10 in. ; Pain 10/10; 11:00 Body Mass Index 35.87 (113.40 kg, 177.8 cm) jl7 11:00 Pain Scale: Adult [facility] ED Course: 10:52 Patient arrived in ED. mg5 10:55 Serge Shea MD is Attending Physician. rn 11:06 Triage completed. jl7 11:06 Arm band placed on right wrist. jl7 11:15 No provider procedures requiring assistance completed. Patient did not have IV access aa5 during this emergency room visit. Administered Medications: 11:15 Drug: Amoxicillin-Clavulanate PO 875 mg PO once Route: PO; aa5 11:15 Drug: traMADol PO 50 mg PO once Route: PO; aa5 11:15 Drug: Ibuprofen PO 800 mg PO once Route: PO; aa5 Outcome: 11:06 Discharge ordered by . rn 11:15 Discharged to home ambulatory, with significant other, aa5 11:15 Condition: stable 11:15 Discharge instructions given to patient, Instructed on discharge instructions, follow up and referral plans. medication usage, Demonstrated understanding of instructions, follow-up care, medications, Prescriptions given X 3, 11:17 Patient left the ED. jl7 Signatures: Serge Shea MD MD rn Calderon, Audri RN RN aa5 Kristal Marquez RN RN jl7 Halima Carlton mg5
[2023-11-23 11:35] VITALS: BP 127/93; TEMP 98.6; O2SAT 95
== END ==
LOC: ER 10:49
DX: H60.392 Other infective otitis externa, left ear (principal); H66.92 Otitis media, unspecified, left ear
CPT/HCPCS: 99283

== ENCOUNTER 2024-09-15 00:23 | Emergency (ER) | payer OTHER ==
--- OUTSIDE RECORDS SUMMARY | 2024-09-15 00:27 | XMS REPORT | Continuity of Care Document ---
Author Name Unknown Address [address] [facility] [address] [place] [address] [facility] thconnect Address [address] 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 Role Phone PCP, PATIENT DOES NOT HAVE A Primary Care Physic timur Unavailable BOBBI WEST Attending Clinician Unavailable BOBBI WEST Attending Clinician Unavailable MOSES ABRAMS Attending Clinician Unavailable Moses Abrams MD Attending Clinician BOBBI WEST Admitting Clinician Unavailable MOSES ABRAMS Admitting Clinician Unavailable Payers Payer Name Policy Type Policy Number Effective Date Expirati on Date Source [facility] [id number] 2023 00:00:00 [facility] [id number] 2021 00:00:00 Allergies, Adverse Reactions, Alerts Allergy Name Allergy Type Status Severity Reaction(s) Onset Date Inactive Date Treating Clinician Comments Source NO KNOWN ALLERGIE S Drug Class Active [facility] Social History Social Habit Start Date Stop Date Quantity Comments Source Sexual orientation [facility] Exposure to SARS-CoV-2 (event) 2023-02-16 00:00:00 2023-02-26 06:59:[address] [facility] Sex assigned at 1980 00:00:00 1980 00:00:[address] [facility] Smoking Status Start Date Stop Date Source Tobacco smoking consumption unknown [facility] Medications Ordered Medication Name Filled Medication Name Start Date Stop Date Current Medication? Ordering Clinician Indication Dosage Frequency Signature (SIG) Comments Components Source prednisone 20 mg tablet 03-04 00:00: 00 Yes 1mg Oseas Gandhi colchicine 0.6 mg tablet 03-04 00:00: 00 Yes 1mg Oseas Gandhi indomethaci n 50 mg capsule 03-04 00:00: 00 Yes 1mg Oseas Gandhi cefdinir 300 mg capsule 12-03 00:00: 00 Yes 1mg Oseas Gandhi TAKE 1 CAPSULE TWICE DAILY. 12-03 00:00: 00 Yes 300 Oseas Gandhi TAKE 1 TABLET BY MOUTH EVERY 12 HOURS FOR 10 DAYS 11-23 00:00: 00 Yes Oseas Gandhi TRAMADOL HYDROCHLORI DE 50 MG TABS 11-23 00:00: 00 Yes Oseas Gandhi INSTILL 4 DROPS EVERY 12 HOURS INTO AFFECTED EAR(S) FOR 7 DAYS 11-23 00:00: 00 Yes Oseas Gandhi dexamethaso ne (DECADRON PHOSPHATE) injection 10 mg 02-26 14:15: 00 02-26 14:15 :00 No 10mg 10 mg, Intramuscu lar, ONCE, 1 dose, On Sun02/26/23 at 0915, [facility] colchicine (COLCRYS) tablet 1.2 mg 02-26 14:15: 00 02-26 14:11 :00 No 1.2mg 1.2 mg, Oral, ONCE NOW, 1 dose, On Sun02/26/23 at 0915, [facility] gabapentin (NEURONTIN) capsule 300 mg 02-26 13:30: 00 02-26 14:11 :00 No 300mg 300 mg, Oral, ONCE, 1 dose, On Sun02/26/23 at 0830, [facility] HYDROcodone -acetaminop hen (NORCO 5) 5-325 mg tablet 1 tablet 02-26 13:30: 00 02-26 14:11 :00 No 1{tbl} 1 tablet, Oral, ONCE, 1 dose, On Sun02/26/23 at 0830, ERIKA [facility] ketorolac (TORADOL) injection 60 mg 02-26 13:00: 00 02-26 12:31 :00 No 60mg 60 mg, Intramuscu lar, ONCE NOW, 1 dose, On Sun02/26/23 at 0800, [facility] TAKE 1 CAPSULE BY MOUTH 3 TIMES A DAY 02-26 00:00: 00 Yes Oseas Gandhi TAKE 1 TABLET BY MOUTH EVERY DAY 02-26 00:00: 00 Yes Oseas Gandhi TAKE 1 TABLET BY MOUTH TWICE A DAY 02-26 00:00: 00 Yes Oseas Gandhi TAKE 2 TABLETS BY MOUTH EVERY DAY 02-26 00:00: 00 Yes Oseas Gandhi meloxicam 15 mg tablet 02-26 00:00: 00 Yes [id number] 15mg Take 1 tablet by mouth daily. [facility] gabapentin (NEURONTIN) 100 mg capsule 02-26 00:00: 00 Yes [id number] 100mg Take 1 capsule by mouth 3 (three) times daily. [facility] INSTILL 4 DROPS IN LEFT EAR TWICE A DAY 10-26 00:00: 00 01-16 00:00 :00 No 301 Oseas Gandhi TAKE DIRECTED. 10-25 00:00: 00 01-16 00:00 :00 No Oseas Jill Gandhi READ AND FOLLOW MANUFACTURE R'S INSTRUCTION S ON BOX. 10-25 00:00: 00 01-16 00:00 :00 No 65 Oseas Jill Gandhi METHYLPREDN ISOLONE 4 MG TBPK 10-24 00:00: 00 Yes 4 Oseas Gandhi TAKE 2 TABLETS ON DAY 1 THEN TAKE 1 TABLET A DAY FOR 4 DAYS. 2021-10 00:00: 00 01-16 00:00 :00 No Oseas Jill Gandhi METHYLPREDN ISOLONE 4 MG TBPK 2021-10 00:00: 00 Yes Oseas Jill Gandhi AZITHROMYCI N 250 MG TABS 2021-10 00:00: 00 Yes 250 Oseas Gandhi BENZONATATE 200 MG 2021-10 00:00: 00 Yes 200 Oseas Gandhi Dose Unknown 16 00:00: 00 Yes Oseas Gandhi Dose Unknown 2020-10 00:00: 00 Yes Oseas Gandhi ibuprofen 800 mg tablet 2019-10 00:00: 00 Yes 1mg Oseas Gandhi Dose Unknown 03-11 00:00: 00 Yes Oseas Gandhi Zofran 8 mg tablet 04-08 00:00: 00 Yes 1mg Oseas Gandhi methylPREDN ISolone (MEDROL, SABRINA,) 4 mg tablets 11-19 00:00: 00 Yes Take by mouth SEE-INSTRU CTIONS. follow package directions [facility] naproxen sodium (ANAPROX DS) 550 mg tablet 11-19 00:00: 00 Yes 550mg Take 1 tablet by mouth 2 (two) times daily with meals. [facility] benzonatate (TESSALON) 200 mg capsule 04-24 00:00: 00 Yes 200mg Take 1 capsule by mouth 3 (three) times daily as needed for Cough. [facility] ondansetron (ZOFRAN, HYDROCHLORI DE,) 4 mg tablet 04-24 00:00: 00 Yes 4mg Take 1 tablet by mouth every 8 (eight) hours as needed for Nausea and Vomiting (N/V). [facility] loperamide (ANTI-DIARR HEAL, LOPERAMIDE, ) 2 mg capsule 04-23 00:00: 00 Yes 2mg Take 1 Cap by mouth every 6 (six) hours as needed for Diarrhea. [facility] ondansetron (ZOFRAN-ODT ) 4 mg disintegrat ing tablet 04-23 00:00: 00 Yes 4mg Take 1 Tab by mouth every 8 (eight) hours as needed for Nausea and Vomiting (N/V). [facility] Immunizations Ordered Immunization Name Filled Immunization Name Date Status Comments Source Moderna COVID-19 Vaccine Moderna COVID-19 Vaccine 2021-05-17 00:00:00 Completed Oseas Gandhi Moderna COVID-19 Vaccine Moderna COVID-19 Vaccine 2021-01-18 00:00:00 Completed Oseas Melchor Hiram Vital Signs Vital Name Observation Time Observation Value Comments S joe Heart rate 2024-04-05 07:52:00 75 /min Unive [facility] Body temperature 2024-04-05 07:52:[address] [facility] Oxygen saturation in Arterial blood by Pulse oximetry 2024-04-05 07:52:00 97 /min [facility] Systolic blood pressure 2024-04-05 07:00:00 121 mm[Hg] [facility] Diastolic blood pressure 2024-04-05 07:00:00 69 mm[Hg] [facility] Respiratory rate 2024-04-05 07:00:00 16 /min [facility] Body height 2024-04-05 04:02:00 180.3 cm [facility] Body weight 2024-04-05 04:02:00 117.935 kg [facility] BMI 2024-04-05 04:02:00 36.26 kg/m2 [facility] Systolic blood pressure 2023-02-26 14:11:00 121 mm[Hg] [facility] Diastolic blood pressure 2023-02-26 14:11:00 81 mm[Hg] [facility] Heart rate 2023-02-26 14:11:00 85 /min [facility] Respiratory rate 2023-02-26 14:11:00 18 /min [facility] Oxygen saturation in Arterial blood by Pulse oximetry 2023-02-26 14:11:00 100 /min [facility] Body temperature 2023-02-26 11:54:[address] [facility] Body height 2023-02-26 11:54:00 177.8 cm [facility] Body weight 2023-02-26 11:54:00 111.131 kg [facility] BMI 2023-02-26 11:54:00 35.15 kg/m2 [facility] BP Systolic 2024-08-01 14:10:00 105 mm[Hg] Step hen F Hiram BP Diastolic 2024-08-01 14:10:00 59 mm[Hg] Koffi phen F Hiram Weight Measured 2024-08-01 14:10:00 290.00 pounds Oseas F Hiram Height Measured 2024-08-01 14:10:00 62.32 inches Oseas F Hiram Body Temperature 2024-08-01 14:10:00 97.30 degrees Oseas F Hiram Heart Rate 2024-08-01 14:10:00 111.00 /min Step hen F Hiram Respiratory Rate 2024-08-01 14:10:00 17.00 /min Oseas F Hiram BP Systolic 2024-03-28 09:11:00 133 mm[Hg] Step hen F Hiram BP Diastolic 2024-03-28 09:11:00 86 mm[Hg] Koffi phen F Hiram Weight Measured 2024-03-28 09:11:00 282.00 pounds Oseas F Hiram Height Measured 2024-03-28 09:11:00 62.32 inches Oseas F Hiram Body Temperature 2024-03-28 09:11:00 98.30 degrees Oseas F Hiram Heart Rate 2024-03-28 09:11:00 86.00 /min Marla en F Hiram Respiratory Rate 2024-03-28 09:11:00 Oseas F Hiram BP Systolic 2024-03-04 16:50:00 121 mm[Hg] Step hen F Hiram BP Diastolic 2024-03-04 16:50:00 83 mm[Hg] Koffi phen F Hiram Weight Measured 2024-03-04 16:50:00 199.20 pounds Oseas F Hiram Height Measured 2024-03-04 16:50:00 62.32 inches Oseas F Hiram Body Temperature 2024-03-04 16:50:00 97.40 degrees Oseas F Hiram Heart Rate 2024-03-04 16:50:00 81.00 /min Marla en F Hiram Respiratory Rate 2024-03-04 16:50:00 Oseas F Hiram BP Systolic 2023-12-03 09:22:00 118 mm[Hg] Step hen F Hiram BP Diastolic 2023-12-03 09:22:00 82 mm[Hg] Koffi phen F Hiram Weight Measured 2023-12-03 09:22:00 268.40 pounds Oseas F Hiram Height Measured 2023-12-03 09:22:00 69.29 inches Oseas F Hiram Body Temperature 2023-12-03 09:22:00 98.20 degrees Oseas F Hiram Heart Rate 2023-12-03 09:22:00 77.00 /min Marla en F Hiram Respiratory Rate 2023-12-03 09:22:00 Oseas F Hiram Body Temperature 2023-03-15 09:02:00 98.10 degrees Oseas F Hiram Heart Rate 2023-03-15 09:02:00 102.00 /min Step hen F Hiram Respiratory Rate 2023-03-15 09:02:00 Oseas F Hiram BP Systolic 2023-03-15 09:02:00 124 mm[Hg] Step hen F Hiram BP Diastolic 2023-03-15 09:02:00 84 mm[Hg] Koffi phen F Hiram Weight Measured 2023-03-15 09:02:00 252.40 pounds Oseas F Hiram Height Measured 2023-03-15 09:02:00 66.18 inches Oseas F Hiram BP Systolic 2023-03-13 08:33:00 103 mm[Hg] Step hen F Hiram BP Diastolic 2023-03-13 08:33:00 65 mm[Hg] Koffi phen F Hiram Weight Measured 2023-03-13 08:33:00 253.00 pounds Oseas F Hiram Height Measured 2023-03-13 08:33:00 66.18 inches Oseas F Hiram Body Temperature 2023-03-13 08:33:00 98.50 degrees Oseas F Hiram Heart Rate 2023-03-13 08:33:00 68.00 /min Marla en F Hiram Respiratory Rate 2023-03-13 08:33:00 25.00 /min Oseas F Hiram BP Systolic 2022-10-26 10:57:00 111 mm[Hg] Step hen F Hiram BP Diastolic 2022-10-26 10:57:00 76 mm[Hg] Koffi phen F Hiram Weight Measured 2022-10-26 10:57:00 252.20 pounds Oseas F Hiram Height Measured 2022-10-26 10:57:00 66.18 inches Oseas F Hiram Body Temperature 2022-10-26 10:57:00 97.30 degrees Oseas F Hiram Heart Rate 2022-10-26 10:57:00 83.00 /min Marla en F Hiram Respiratory Rate 2022-10-26 10:57:00 Oseas F Hiram BP Systolic 2022-10-25 10:54:00 127 mm[Hg] Step hen F Hiram BP Diastolic 2022-10-25 10:54:00 76 mm[Hg] Koffi phen F Hiram Weight Measured 2022-10-25 10:54:00 252.80 pounds Oseas F Hiram Height Measured 2022-10-25 10:54:00 66.18 inches Oseas F Hiram Body Temperature 2022-10-25 10:54:00 97.80 degrees Oseas F Hiram Heart Rate 2022-10-25 10:54:00 93.00 /min Marla en F Hiram Respiratory Rate 2022-10-25 10:54:00 18.00 /min Oseas F Hiram BP Systolic 2022-08-17 08:23:00 123 mm[Hg] Step hen F Hiram BP Diastolic 2022-08-17 08:23:00 83 mm[Hg] Koffi phen F Hiram Weight Measured 2022-08-17 08:23:00 253.80 pounds Oseas F Hiram Height Measured 2022-08-17 08:23:00 66.18 inches Oseas F Hiram Body Temperature 2022-08-17 08:23:00 97.60 degrees Oseas F Hiram Heart Rate 2022-08-17 08:23:00 82.00 /min Marla en F Hiram Respiratory Rate 2022-08-17 08:23:00 Oseas F Hiram BP Systolic 2021-09-23 08:19:00 109 mm[Hg] Step hen F Hiram BP Diastolic 2021-09-23 08:19:00 74 mm[Hg] Koffi phen F Hiram Weight Measured 2021-09-23 08:19:00 256.00 pounds Oseas F Hiram Height Measured 2021-09-23 08:19:00 66.18 inches Oseas F Hiram Body Temperature 2021-09-23 08:19:00 98.30 degrees Oseas F Hiram Heart Rate 2021-09-23 08:19:00 82.00 /min Marla en F Hiram Respiratory Rate 2021-09-23 08:19:00 Oseas F Hiram BP Systolic 2020-09-23 16:28:00 114 mm[Hg] Step hen F Hiram BP Diastolic 2020-09-23 16:28:00 78 mm[Hg] Koffi phen F Hiram Weight Measured 2020-09-23 16:28:00 264.60 pounds Oseas F Hiram Height Measured 2020-09-23 16:28:00 69.29 inches Oseas F Hiram Body Temperature 2020-09-23 16:28:00 98.40 degrees Oseas F Hiram Heart Rate 2020-09-23 16:28:00 80.00 /min Marla en F Hiram Respiratory Rate 2020-09-23 16:28:00 17.00 /min Oseas F Hiram BP Systolic 2020-03-10 10:18:00 122 mm[Hg] Step hen F Hiram BP Diastolic 2020-03-10 10:18:00 86 mm[Hg] Koffi phen F Hiram Weight Measured 2020-03-10 10:18:00 257.80 pounds Oseas F Hiram Height Measured 2020-03-10 10:18:00 69.29 inches Oseas F Hiram Body Temperature 2020-03-10 10:18:00 98.70 degrees Oseas F Hiram Heart Rate 2020-03-10 10:18:00 81.00 /min Marla en F Hiram Respiratory Rate 2020-03-10 10:18:00 Oseas F Hiram BP Systolic 2019-04-08 10:36:00 111 mm[Hg] Step hen F Hiram BP Diastolic 2019-04-08 10:36:00 79 mm[Hg] Koffi phen F Hiram Weight Measured 2019-04-08 10:36:00 237.60 pounds Oseas F Hiram Height Measured 2019-04-08 10:36:00 69.29 inches Oseas F Hiram Body Temperature 2019-04-08 10:36:00 98.70 degrees Oseas F Hiram Heart Rate 2019-04-08 10:36:00 86.00 /min Marla en F Hiram Respiratory Rate 2019-04-08 10:36:00 18.00 /min Oseas F Hriam Procedures Procedure Date / Time Performed Performing Clinicia n Source [id number] Ultrasound, Abdominal, Real Time With Image Documentation; Complete 2024-04-17 00:00:00 Oseaseyal Gandhi EKG-12 LEAD 2024-04-05 07:54:45 Bobbi West [facility] D-DIMER 2024-04-05 06:46:00 Bobbi West [facility] XR CHEST 1 VW 2024-04-05 05:55:13 Bobbi West [facility] COMP. METABOLIC PANEL ([id number]) 2024-04-05 04:42:[address] [facility] CBC WITH DIFF 2024-04-05 04:42:00 Bobbi West [facility] INFLUENZA A/B RSV COVID NAAT 2024-04-05 04:42:[address] [facility] N-TERMINAL PRO-BNP 2024-04-05 04:42:[address] [facility] XR TIBIA FIBULA 2 VW RIGHT 2023-02-26 13:03:47 Remberto [facility] URIC ACID 2023-02-26 12:35:00 Moses Abrams [facility] ASSIGNMENT OF BENEFITS 2023-02-26 12:17:12 Docto r Unassigned, [place] [facility] Encounters Start Date/Time End Date/Time Encounter Type Admission Type Attending Clinicians Care Facility Care Department Encounter ID Source 2024-08-01 14:03:06 2024-08-01 14:03:06 Outpatient [facility] [id number] Oseas Gandhi 2024-08-01 00:00:00 2024-08-01 00:00:00 Outpatient Visit [facility] [id number] Oseas Gandhi 2024-04-17 15:44:26 2024-04-17 15:44:26 Outpatient [facility] [id number] Oseas Gandhi 2024-04-05 10:33:45 2024-04-05 10:33:45 Outpatient [facility] [id number] Oseas Gandhi 2024-04-04 22:59:00 2024-04-05 02:56:00 Emergency X BOBBI WEST [facility] [id number] [facility] 2024-04-04 22:59:00 2024-04-05 02:56:00 Emergency Bobbi West [facility] [id number] [facility] 2024-03-28 09:08:15 2024-03-28 09:08:15 Outpatient [facility] [id number] Oseas Gandhi 2024-03-28 00:00:00 2024-03-28 00:00:00 Outpatient Visit [facility] [id number] Oseas Gandhi 2024-03-04 16:45:02 2024-03-04 16:45:02 Outpatient [facility] [id number] Oseas Gandhi 2024-03-04 00:00:00 2024-03-04 00:00:00 Outpatient Visit [facility] [id number] Oseas Gandhi 2023-03-21 08:14:10 2023-03-21 08:14:10 Outpatient [facility] [id number] Oseas Gandhi 2023-03-15 09:03:13 2023-03-15 09:03:13 Outpatient [facility] [id number] Oseas Gandhi 2023-03-13 08:33:19 2023-03-13 08:33:19 Outpatient [facility] [id number] Oseas Gandhi 2023-02-26 06:56:00 2023-02-26 09:26:00 Emergency [facility] [id number] [facility] 2023-02-26 06:56:00 2023-02-26 09:26:00 Emergency Moses Abrams [facility] [id number] [facility] 2022-10-26 10:56:34 2022-10-26 10:56:34 Outpatient [facility] [id number] Oseas Gandhi 2022-10-25 10:57:52 2022-10-25 10:57:52 Outpatient [facility] [id number] Oseas Gandhi 2022-08-17 08:17:10 2022-08-17 08:17:10 Outpatient [facility] [id number] Oseas Gandhi Results Test Description Test Time Test Comments Results Result Co mments Source Oseas GandhiNOTE: [ADDED]2024-04-12 00:00:00* Test Item Value Reference Range Interpretation Comme nts NOTE: (test code = 998) (NOTE) Oseas GandhiACUTE HEPATITIS [id number] 00:00:00* Test Item Value Reference Range Interpretation Comme nts HEPATITIS A IgM (test code = 07583) NON-REACTIVE HEPATITIS B CORE IgM (test c ode = 4644) NON-REACTIVE HEPATITIS B SURF AG (test co de = 2739) NON-REACTIVE HEPATITIS C ANTIBODY (test c ode = 4675) NON-REACTIVE INTERPRETATION HEPATITIS A: (test code = 2552) (NOTE) INTERPRETATION HEPATITIS B: (test code = 13035) (NOTE) INTERPRETATION HEPATITIS C: (test code = 42311) (NOTE) Oseas GandhiCBC W/AUTO [id number] 00:00:00* Test Item Value Reference Range Interpretation Comme nts WBC (test code = 1001) 8.0 K/UL RBC (test code = 1002) 5.17 M/UL HEMOGLOBIN (test code = 1003) 16.0 G/DL HEMATOCRIT (test code = 1004) 48.1 % MCV (test code = 1005) 93.0 fL MCH (test code = 1006) 30.9 PG MCHC (test code = 1007) 33.3 G/DL RDW (test code = 1038) 13.2 % NEUTROPHILS (test code = 1008) 60.7 % LYMPHOCYTES (test code = 1010) 25.7 % MONOCYTES (test code = 1011) 7.5 % EOSINOPHILS (test code = 1012) 4.6 % BASOPHILS (test code = 1013) 0.9 % IMMATURE GRANULOCYTES (test code = 1036) 0.6 % NUCLEATED RBCS (test code = 1065) 0.0 /100WBC'S PLATELET COUNT (test code = 1015) 234 K/UL ABSOLUTE NEUTROPHILS (test c ode = 1066) 4.83 K/UL ABSOLUTE LYMPHOCYTES (test c ode = 1067) 2.05 K/UL ABSOLUTE MONOCYTES (test cod e = 1068) 0.60 K/UL ABSOLUTE EOSINOPHILS (test c ode = 1040) 0.37 K/UL ABSOLUTE BASOPHILS (test cod e = 1069) 0.07 K/UL ABS IMMATURE GRANULOCYTES (t est code = 1020) 0.05 K/UL ABS NUCLEATED RBCS (test cod e = 94070) 0.00 K/UL Oseas Melchor AustinCHLORIDE [ADDED]2024-04-06 00:00:00* Test Item Value Reference Range Interpretation Comme nts CHLORIDE (test code = 2215) 101 MEQ/L Oseas Melchor [id number] 07:30:14* Test Item Value Reference Range Interpretation Comments D-DIMER (test code = 6862272967) See_Comment [Automated message] The system which generated this result transmitted reference range: <0.50 ?g/mL (FEU). The reference range was not used to interpret this result as normal/abnormal. EMILEE (test code = EMILEE) This test may be used in conjunction with a clinical pretest probability (PTP) assessment model to exclude venous thromboembolism (VTE) in patients suspected of deep venous thrombosis (DVT) and pulmonary embolism (PE) A D-Dimer value less than 0.50 ?g/ml (FEU) has a negative predicative value of 96 to 100% (95% CI)and 97 to 100% (95% CI) as an aid in the diagnosis of deep vein thrombosis (DVT) and pulmonary embolism when there is low or moderate pretest probability of PE or DVT. D-Dimer values are expressed in initial fibrinogen equivalent units (FEU)" The assay results should be used with other information, including the clinical context, in forming a diagnosis. Lab Interpretation (test code = 85106-7) Normal [facility] [id number] 06:23:33Ordering physician: BOBBI WEST Indication: Shortness of breath Comparison: None Technical quality: Adequate Findings: Single AP view of the chest. The cardiopericardial silhouette iswithin normal limits. The lungs are clear bilaterally. The visualized bonythorax is intact.[facility] [id number] 05:26:49* Test Item Value Reference Range Interpretation Comme nts NT-proBNP (test code = 11191-1) <=125 Lab Interpretation (test cod e = 20530-4) Normal [facility] (50515)2024-04-05 05:13:37* Test Item Value Reference Range Interpretation Comme nts NA (test code = 1537992704) 138 mmol/L 135-145 K (test code = 9043181474) 3.6 mmol/L 3.5-5.0 CL (test code = 2978369824) 102 mmol/L 98-108 CO2 TOTAL (test code = 9730713976) 30 mmol/L 23-31 AGAP (test code = 3549035712) 6 2-16 BUN (test code = 0132625841) 16 mg/dL 7-23 GLUCOSE (test code = 6772899837) 107 mg/dL 70-110 CREATININE (test code = 2160-0) 1.00 mg/dL 0.60-1.25 TOTAL BILI (test code = 0080335109) 1.1 mg/dL 0.1-1.1 CALCIUM (test code = 2349254186) 9.5 mg/dL 8.6-10.6 T PROTEIN (test code = 4313575596) 8.2 g/dL 6.3-8.2 ALBUMIN (test code = 5672077836) 4.3 g/dL 3.5-5.0 ALK PHOS (test code = 9361541012) 142 U/L 34-122 H ALTv (test code = 1742-6) 236 U/L 5-50 H AST(SGOT) (test code = 9286816143) 110 U/L 13-40 H eGFR (test code = 47836-5) 95.8 mL/min/1.73m2 CKD-EPI eGFR (2020). Assuming creatinine has been stable day-to-day for at least three months, the eGFR indicates Category G1 (>= 90 mL/min/1.73 m2) Lab Interpretation (test code = 39250-6) Abnormal [facility] with [id number] 04:56:14* Test Item Value Reference Range Interpretation Comme nts WBC (test code = 6690-2) 9.43 4.20-10.70 RBC (test code = 789-8) 5.19 4.26-5.52 HGB (test code = 718-7) 16.3 g/dL 12.2-16.4 HCT (test code = 4544-3) 48.0 % 38.4-49.3 MCV (test code = 787-2) 92.5 fL 81.7-95.6 MCH (test code = 785-6) 31.4 pg 26.1-32.7 MCHC (test code = 786-4) 34.0 g/dL 31.2-35.0 RDW-SD (test code = 64482-0) 44.1 fL 38.5-51.6 RDW-CV (test code = 788-0) 13.1 % 12.1-15.4 PLT (test code = 777-3) 257 150-328 MPV (test code = 91090-9) 11.1 fL 9.8-13.0 NRBC/100 WBC (test code = 2612130064) 0.0 0.0-10.0 NRBC x10^3 (test code = 2789461700) See_Comment [Automated messa ge] The system which generated this result transmitted reference range: 10*3/?L. The reference range was not used to interpret this result as normal/abnormal. GRAN MAT (NEUT) % (test code = 770-8) 50.6 % IMM GRAN % (test code = 1713532774) 0.80 % LYMPH % (test code = 736-9) 34.6 % MONO % (test code = 5905-5) 8.2 % EOS % (test code = 713-8) 5.0 % BASO % (test code = 706-2) 0.8 % GRAN MAT x10^3(ANC) (test code = 5175153693) 4.77 10*3/uL 1.99-6.95 IMM GRAN x10^3 (test code = 5662201393) 0.08 10*3/uL 0.00-0.06 H LYMPH x10^3 (test code = 731-0) 3.26 10*3/uL 1.09-3.23 H MONO x10^3 (test code = 742-7) 0.77 10*3/uL 0.36-1.02 EOS x10^3 (test code = 711-2) 0.47 10*3/uL 0.06-0.53 BASO x10^3 (test code = 704-7) 0.08 10*3/uL 0.01-0.09 Lab Interpretation (test code = 78452-0) Abnormal [facility] [id number] 00:00:00* Test Item Value Reference Range Interpretation Comme nts WBC (test code = 1001) TEST NOT PERFORME D K/UL RBC (test code = 1002) TEST NOT PERFORME D M/UL HEMOGLOBIN (test code = 1003) TEST NOT PERFORMED G/DL HEMATOCRIT (test code = 1004) TEST NOT PERFORMED % MCV (test code = 1005) TEST NOT PERFORMED fL MCH (test code = 1006) TEST NOT PERFORMED PG MCHC (test code = 1007) TEST NOT PERFORM ED G/DL RDW (test code = 1038) TEST NOT PERFORMED % NEUTROPHILS (test code = 1008) TEST NOT PERFORMED % LYMPHOCYTES (test code = 1010) TEST NOT PERFORMED % MONOCYTES (test code = 1011) TEST NOT PERFORMED % EOSINOPHILS (test code = 1012) TEST NOT PERFORMED % BASOPHILS (test code = 1013) TEST NOT PERFORMED % PLATELET COUNT (test code = 1015) TEST NOT PERFORMED K/UL ABSOLUTE NEUTROPHILS (test code = 1066) TEST NOT PERFORMED K/UL ABSOLUTE LYMPHOCYTES (test code = 1067) TEST NOT PERFORMED K/UL ABSOLUTE MONOCYTES (test code = 1068) TEST NOT PERFORMED K/UL ABSOLUTE EOSINOPHILS (test code = 1040) TEST NOT PERFORMED K/UL ABSOLUTE BASOPHILS (test code = 1069) TEST NOT PERFORMED K/UL Oseas F AustinLIPID [id number] 00:00:00* Test Item Value Reference Range Interpretation Comme nts CHOLESTEROL (test code = 2210) 180 MG/DL TRIGLYCERIDES (test code = 2232) 269 MG/DL HDL CHOLESTEROL (test code = 2220) 37 MG/DL CALC LDL CHOL (test code = 2237) 105 MG/DL RISK RATIO LDL/HDL (test cod e = 2238) 2.84 RATIO Oseas GandhiCOMPREHENSIVE METABOLIC [id number] 00:00:00* Test Item Value Reference Range Interpretation Comme nts GLUCOSE (test code = 2217) 98 MG/DL BUN (test code = 2208) 11 MG/DL CREATININE (test code = 2214) 0.97 MG/DL eGFR (2020 CKD-EPI) (test co de = 41524) 99 ML/MIN/1.73 CALC BUN/CREAT (test code = 2235) 11 RATIO SODIUM (test code = 2231) 142 MEQ/L POTASSIUM (test code = 2228) 3.8 MEQ/L CHLORIDE (test code = 2215) 101 MEQ/L CARBON DIOXIDE (test code = 2206) 23 MEQ/L CALCIUM (test code = 2209) 9.6 MG/DL PROTEIN, TOTAL (test code = 2229) 7.2 G/DL ALBUMIN (test code = 2201) 4.3 G/DL CALC GLOBULIN (test code = 2240) 2.9 G/DL CALC A/G RATIO (test code = 2234) 1.5 RATIO BILIRUBIN, TOTAL (test code = 2207) 1.1 MG/DL ALKALINE PHOSPHATASE (test code = 2204) 162 U/L AST (test code = 2218) 105 U/L ALT (test code = 2219) 218 U/L Oseas GandhiANA NON-REFLEX TO [id number] 01:20:40* Test Item Value Reference Range Interpretation Comme nts ANTI-NUCLEAR ANTIBODIES (test code = 3506) NEGATIVE NEGATIVE METHODOLOGY IS I NDIRECT IMMUNOFLUORESCENT ASSAY (IFA) WITH HUMAN EPITHELIAL (HEP-2) CELL LINE SUBSTRATE. DEENA NON-REFLEX TO [id number] 00:00:00* Test Item Value Reference Range Interpretation Comme nts ANTI-NUCLEAR ANTIBODIES (adelfo t code = 3506) NEGATIVE Oseas [id number] 06:51:41* Test Item Value Reference Range Interpretation Comme nts TRANSFERRIN (test code = 4936) 294 MG/DL 200-360 [id number] 06:51:41* Test Item Value Reference Range Interpretation Comme nts LDH (test code = 4) 179 U/L 135-225 UNLESS OTHERWISE INDICATED, ALL TESTING PERFORMED AT [facility] [address] [place] [id number] PASTOR: EVERT PAYTON M.D. [place] NUMBER [id number] [facility] [place]. [id number] HEPATITIS PANEL, [id number] 04:46:11* Test Item Value Reference Range Interpretation Comme nts HEPATITIS A IgM (test code = 10716) NON-REACTIVE NON-REACTIVE HEPATITIS B CORE IgM (test code = 4644) NON-REACTIVE NON-REACTIVE HEPATITIS B SURF AG (test code = 2739) NON-REACTIVE NON-REACTIVE HEPATITIS C ANTIBODY (test code = 4675) NON-REACTIVE NON-REACTIVE INTERPRETATION HEPATITIS A: (test code = 2552) (NOTE) Hepatitis A serology shows no evidence of acute hepatitis A. INTERPRETATION HEPATITIS B: (test code = 60009) (NOTE) Hepatitis B serology shows no evidence of acute hepatitis B andno indication of exposure to hepatitis B virus in the previous luda eight months. INTERPRETATION HEPATITIS C: (test code = 51913) (NOTE) Hepatitis C serology shows no evidence of exposure to hepatitisC virus at this time. It can take up to 12 months after exposure tothe hepatitis C virus for antibodies to become detectable in the blood in certain patients. BILIRUBIN, NON-, TOTAL AND [id number] 04:14:59* Test Item Value Reference Range Interpretation Comme nts BILIRUBIN, TOTAL (test code = 2206) 1.0 MG/DL See_Comment [Automated me ssage] The system which generated this result transmitted reference range: <=1.2. The reference range was not used to interpret this result as normal/abnormal. BILIRUBIN, DIRECT (test code = 2021) 0.2 MG/DL 0.0-0.3 CALC INDIR BILIRUBIN (test code = 2036) 0.8 MG/DL 0.0-0.7 H IRON BINDING CAPACITY AND IRON AND % [id number] 04:14:59* Test Item Value Reference Range Interpretation Comme nts IRON, SERUM (test code = 2221) 89 UG/DL 59-158 UNSATURATED IBC (test code = ) 275 UG/DL 112-347 CALC TOTAL IBC (test code = 2076) 364 UG/DL 250-450 CALC % IRON SAT (test code = 2078) 24 % 20-50 [id number] 04:12:33* Test Item Value Reference Range Interpretation Comme nts FERRITIN (test code = 207) 289 NG/ML 30-400 RETICULOCYTE WITH [id number] 02:59:28* Test Item Value Reference Range Interpretation Comme nts RETICULOCYTE COUNT (test cod e = 1018) 1.64 % 0.80-2.40 ABSOLUTE RETICULOCYTE (test code = 99619) 94.1 K/UL 35.0-110.0 ACUTE HEPATITIS [id number] 00:00:00* Test Item Value Reference Range Interpretation Comme nts HEPATITIS A IgM (test code = 41555) NON-REACTIVE HEPATITIS B CORE IgM (test c ode = 4644) NON-REACTIVE HEPATITIS B SURF AG (test co de = 2739) NON-REACTIVE HEPATITIS C ANTIBODY (test c ode = 4675) NON-REACTIVE INTERPRETATION HEPATITIS A: (test code = 2552) (NOTE) INTERPRETATION HEPATITIS B: (test code = 53841) (NOTE) INTERPRETATION HEPATITIS C: (test code = 69643) (NOTE) Oseas Melchor AustinIRON BINDING CAPACITY AND IRON AND % [id number] 00:00:00* Test Item Value Reference Range Interpretation Comme nts IRON, SERUM (test code = 2222) 89 UG/DL UNSATURATED IBC (test code = 49092) 275 UG/DL CALC TOTAL IBC (test code = 2077) 364 UG/DL CALC % IRON SAT (test code = 2079) 24 % Oseas Melchor [id number] 00:00:00* Test Item Value Reference Range Interpretation Comme nts FERRITIN (test code = 2074) 289 NG/ML Oseas Melchor [id number] 00:00:00* Test Item Value Reference Range Interpretation Comme nts TRANSFERRIN (test code = 4936) 294 MG/DL Oseas Jill AustinBILIRUBIN, NON-, TOTAL AND [id number] 00:00:00* Test Item Value Reference Range Interpretation Comme nts BILIRUBIN, TOTAL (test code = 2206) 1.0 MG/DL BILIRUBIN, DIRECT (test code = 2021) 0.2 MG/DL CALC INDIR BILIRUBIN (test c ode = 2036) 0.8 MG/DL Oseas Jill AustinRETICULOCYTE WITH [id number] 00:00:00* Test Item Value Reference Range Interpretation Comme nts RETICULOCYTE COUNT (test cod e = 1018) 1.64 % ABSOLUTE RETICULOCYTE (test code = 49255) 94.1 K/UL Oseas [id number] 00:00:00* Test Item Value Reference Range Interpretation Comme nts LDH (test code = 2224) 179 U/L Oseas GandhiCOMPREHENSIVE METABOLIC [id number] 17:18:13* Test Item Value Reference Range Interpretation Comme nts GLUCOSE (test code = 2217) 90 MG/DL 70-99 BUN (test code = 220) 12 MG/DL 6-20 CREATININE (test code = 2214) 1.05 MG/DL 0.80-1.40 eGFR (2020 CKD-EPI) (test code = 99683) 91 ML/MIN/1.73 >60 CALC BUN/CREAT (test code = 2235) 11 RATIO 6-28 SODIUM (test code = 223) 144 MEQ/L 133-146 POTASSIUM (test code = 2228) 4.2 MEQ/L 3.5-5.4 CHLORIDE (test code = 2215) 101 MEQ/L 95-107 CARBON DIOXIDE (test code = 2206) 24 MEQ/L 19-31 CALCIUM (test code = 2209) 10.0 MG/DL 8.5-10.5 PROTEIN, TOTAL (test code = 2229) 7.7 G/DL 6.1-8.3 ALBUMIN (test code = 2201) 4.6 G/DL 3.5-5.2 CALC GLOBULIN (test code = 2240) 3.1 G/DL 1.9-3.7 CALC A/G RATIO (test code = 2234) 1.5 RATIO 1.0-2.6 BILIRUBIN, TOTAL (test code = 2207) 1.7 MG/DL See_Comment H [Automated me ssage] The system which generated this result transmitted reference range: <=1.2. The reference range was not used to interpret this result as normal/abnormal. ALKALINE PHOSPHATASE (test code = 2204) 164 U/L 40-119 H AST (test code = 2218) 52 U/L 9-50 H ALT (test code = 2219) 99 U/L 5-50 H HEPATITIS C [id number] 06:58:28* Test Item Value Reference Range Interpretation Comme nts HEPATITIS C ANTIBODY (test c ode = 4675) NON-REACTIVE NON-REACTIVE HIV 1/2 4TH GEN, RFLX [id number] 06:58:28* Test Item Value Reference Range Interpretation Comme nts HIV 1/2 4TH GEN, RFLX CONF (test code = 3514) NON-REACTIVE NON-REACTIVE UNLESS OTHERWISE INDICATED, ALL TESTING PERFORMED AT [facility] [address] [place] [address] PASTOR: EVERT PAYTON M.D. [place] NUMBER [id number] [facility] [place]. [id number] HEMOGLOBIN [id number] 06:51:32* Test Item Value Reference Range Interpretation Comme nts HEMOGLOBIN A1c (test code = 45487) 5.7 % 4.2-5.6 H [employer] GUIDELINES FOR HGB A1C: [...] OR LABORATORY CONSULTATION. CBC W/AUTO DIFF WITH [id number] 04:17:39* Test Item Value Reference Range Interpretation [...] = 1065) 0.0 /100 WBC'S See_Comment [Automated Educreationsa ge] The system which generated this result [...] 0.00-0.10 ABS NUCLEATED RBCS (test code = 27959) 0.00 K/UL 0.00-0.11 COMPREHENSIVE METABOLIC [id number] 00:00:00* Test Item Value Reference Range Interpretation Comme nts GLUCOSE (test code = 2217) 90 MG/DL BUN (test code = 2208) 12 MG/DL CREATININE (test code = 2214) 1.05 MG/DL eGFR (2020 CKD-EPI) (test co de = 21503) 91 ML/MIN/1.73 CALC BUN/CREAT (test code = 2235) 11 RATIO SODIUM (test code = 2231) 144 MEQ/L POTASSIUM (test code = 2228) 4.2 MEQ/L CHLORIDE (test code = 2215) 101 MEQ/L CARBON DIOXIDE (test code = 2206) 24 MEQ/L CALCIUM (test code = 2209) 10.0 MG/DL PROTEIN, TOTAL (test code = 2229) 7.7 G/DL ALBUMIN (test code = 2201) 4.6 G/DL CALC GLOBULIN (test code = 2240) 3.1 G/DL CALC A/G RATIO (test code = 2234) 1.5 RATIO BILIRUBIN, TOTAL (test code = 2207) 1.7 MG/DL ALKALINE PHOSPHATASE (test code = 2204) 164 U/L AST (test code = 2218) 52 U/L ALT (test code = 2219) 99 U/L Oseas GandhiHEMOGLOBIN [id number] 00:00:00* Test Item Value Reference Range Interpretation Comme nts HEMOGLOBIN A1c (test code = 07453) 5.7 % Oseas GandhiCBC W/AUTO [id number] 00:00:00* Test Item Value Reference Range Interpretation Comme nts WBC (test code = 1001) 7.6 K/UL RBC (test code = 1002) 5.60 M/UL HEMOGLOBIN (test code = 1003) 17.3 G/DL HEMATOCRIT (test code = 1004) 50.0 % MCV (test code = 1005) 89.3 fL MCH (test code = 1006) 30.9 PG MCHC (test code = 1007) 34.6 G/DL RDW (test code = 1038) 13.0 % NEUTROPHILS (test code = 1008) 68.2 % LYMPHOCYTES (test code = 1010) 21.0 % MONOCYTES (test code = 1011) 5.8 % EOSINOPHILS (test code = 1012) 3.9 % BASOPHILS (test code = 1013) 0.7 % IMMATURE GRANULOCYTES (test code = 1036) 0.4 % NUCLEATED RBCS (test code = 1065) 0.0 /100WBC'S PLATELET COUNT (test code = 1015) 215 K/UL ABSOLUTE NEUTROPHILS (test c ode = 1066) 5.20 K/UL ABSOLUTE LYMPHOCYTES (test c ode = 1067) 1.60 K/UL ABSOLUTE MONOCYTES (test cod e = 1068) 0.44 K/UL ABSOLUTE EOSINOPHILS (test c ode = 1040) 0.30 K/UL ABSOLUTE BASOPHILS (test cod e = 1069) 0.05 K/UL ABS IMMATURE GRANULOCYTES (t est code = 1020) 0.03 K/UL ABS NUCLEATED RBCS (test cod e = 06574) 0.00 K/UL Oseas GandhiHEPATITIS C [id number] 00:00:00* Test Item Value Reference Range Interpretation Comme nts HEPATITIS C ANTIBODY (test c ode = 4675) NON-REACTIVE Oseas F AustinHIV 1/2 4TH GEN, RFLX [id number] 00:00:00* Test Item Value Reference Range Interpretation Comme nts HIV 1/2 4TH GEN, RFLX CONF ( test code = 3514) NON-REACTIVE Oseas Melchor [id number] 05:30:18* Test Item Value Reference Range Interpretation Comme nts AMYLASE (test code = 2205) 89 U/L 28-100 [id number] 05:30:18* Test Item Value Reference Range Interpretation Comme nts LIPASE (test code = 2058) 29 U/L 13-60 UNLESS OTHERWISE INDICATED, [facility] [address] [place] [address] PASTOR: MARIANN CHANEL M.D. CLIA NUMBER [id number] [facility] [place]. [id number] CBC W/AUTO DIFF WITH [id number] 05:21:06* Test Item Value Reference Range Interpretation [...] DIFFERENTIAL WILL BE ELIMINATED REDUNDANT TOABSOLUTE COUNTS.SEE [email or web address] te LYMPHOCYTES (test code = 1010) [...] 0.00-0.10 ABS NUCLEATED RBCS (test code = 22791) 0.00 K/UL 0.00-0.11 LIPID [id number] 05:03:40* Test Item Value Reference Range Interpretation [...] SPECIMENS. FOR MOREINFORMATION, SEE CLIENT ANNOUNCEMENT AT [email or web address] RISK RATIO LDL/HDL (test code = 2238) 2.53 RATIO <3.55 COMPREHENSIVE METABOLIC [id number] 05:03:40* Test Item Value Reference Range Interpretation Comme nts GLUCOSE (test code = 2217) 92 MG/DL 70-99 BUN (test code = 2208) 11 MG/DL 6-20 CREATININE (test code = 2214) 0.89 MG/DL 0.80-1.40 EFFECTIVE 09/19/2021, [facility] HAS IMPLEMENTED THE NKF-ASN RECOMMENDED KD-EPI EGFR REFIT CALCULATION THAT DOES NOT INCLUDE A COEFFICIENT FORRACE. FOR MORE INFORMATION, SEE ANNOUNCEMENT [email or web address] eGFR (2020 CKD-EPI) (test code = 80012) 110 ML/MIN/1.73 >60 CALC BUN/CREAT (test code = 223) 12 RATIO 6-28 SODIUM (test code = 223) 141 MEQ/L 133-146 POTASSIUM (test code = 2228) 4.1 MEQ/L 3.5-5.4 CHLORIDE (test code = 221) 101 MEQ/L 95-107 CARBON DIOXIDE (test code = 220) 28 MEQ/L 19-31 CALCIUM (test code = 220) 9.7 MG/DL 8.5-10.5 PROTEIN, TOTAL (test code = 2228) 7.8 G/DL 6.1-8.3 ALBUMIN (test code = 2200) 4.4 G/DL 3.5-5.2 CALC GLOBULIN (test code = 224) 3.4 G/DL 1.9-3.7 CALC A/G RATIO (test code = 2233) 1.3 RATIO 1.0-2.6 BILIRUBIN, TOTAL (test code = 2206) 1.4 MG/DL See_Comment H [Automated me ssage] The system which generated this result transmitted reference range: <=1.2. The reference range was not used to interpret this result as normal/abnormal. ALKALINE PHOSPHATASE (test code = 2204) 139 U/L 40-119 H AST (test code = 2218) 46 U/L 9-50 ALT (test code = 2219) 87 U/L 5-50 H CBC W/AUTO [id number] 00:00:00* Test Item Value Reference Range Interpretation Comme nts WBC (test code = 1001) 6.1 K/UL RBC (test code = 1002) 5.35 M/UL HEMOGLOBIN (test code = 1003) 16.7 G/DL HEMATOCRIT (test code = 1004) 46.9 % MCV (test code = 1005) 87.7 fL MCH (test code = 1006) 31.2 PG MCHC (test code = 1007) 35.6 G/DL RDW (test code = 1038) 12.7 % NEUTROPHILS (test code = 1008) 58.0 % LYMPHOCYTES (test code = 1010) 28.0 % MONOCYTES (test code = 1011) 7.9 % EOSINOPHILS (test code = 1012) 4.6 % BASOPHILS (test code = 1013) 0.7 % IMMATURE GRANYLOCYTES (test code = 1036) 0.8 % NUCLEATED RBCS (test code = 1065) 0.0 /100WBC'S PLATELET COUNT (test code = 1015) 231 K/UL ABSOLUTE NEUTROPHILS (test c ode = 1066) 3.53 K/UL ABSOLUTE LYMPHOCYTES (test c ode = 1067) 1.70 K/UL ABSOLUTE MONOCYTES (test cod e = 1068) 0.48 K/UL ABSOLUTE EOSINOPHILS (test c ode = 1040) 0.28 K/UL ABSOLUTE BASOPHILS (test cod e = 1069) 0.04 K/UL ABS IMMATURE GRANULOCYTES (t est code = 1020) 0.05 K/UL ABS NUCLEATED RBCS (test cod e = 51982) 0.00 K/UL Oseas Jill BoiseLIPID [id number] 00:00:00* Test Item Value Reference Range Interpretation Comme nts CHOLESTEROL (test code = 2210) 176 MG/DL TRIGLYCERIDES (test code = 2232) 313 MG/DL HDL CHOLESTEROL (test code = 2220) 38 MG/DL CALC LDL CHOL (test code = 2237) 96 MG/DL RISK RATIO LDL/HDL (test cod e = 2238) 2.53 RATIO Oseas GandhiCOMPREHENSIVE METABOLIC [id number] 00:00:00* Test Item Value Reference Range Interpretation Comme nts GLUCOSE (test code = 2217) 92 MG/DL BUN (test code = 2208) 11 MG/DL CREATININE (test code = 2214) 0.89 MG/DL eGFR (2020 CKD-EPI) (test code = 84575) 110 ML/MIN/1.73 CALC BUN/CREAT (test code = 2235) 12 RATIO SODIUM (test code = 2231) 141 MEQ/L POTASSIUM (test code = 2228) 4.1 MEQ/L CHLORIDE (test code = 2215) 101 MEQ/L CARBON DIOXIDE (test code = 2206) 28 MEQ/L CALCIUM (test code = 2209) 9.7 MG/DL PROTEIN, TOTAL (test code = 2229) 7.8 G/DL ALBUMIN (test code = 2201) 4.4 G/DL CALC GLOBULIN (test code = 2240) 3.4 G/DL CALC A/G RATIO (test code = 2234) 1.3 RATIO BILIRUBIN, TOTAL (test code = 2207) 1.4 MG/DL ALKALINE PHOSPHATASE (test code = 2204) 139 U/L AST (test code = 2218) 46 U/L ALT (test code = 2219) 87 U/L Oseas [id number] 00:00:00* Test Item Value Reference Range Interpretation Comme nts AMYLASE (test code = 2205) 89 U/L Oseas Melchor [id number] 00:00:00* Test Item Value Reference Range Interpretation Comme nts LIPASE (test code = 2058) 29 U/L Oseas GandhiCULTURE, [id number] 00:00:00* Test Item Value Reference Range Interpretation Comme nts CULTURE, URINE (test code = 45771) SPECIMEN NUMBER: [id number] Oseas GandhiLIPID [id number] 00:00:00* Test Item Value Reference Range Interpretation Comme nts CHOLESTEROL (test code = 2210) 185 MG/DL TRIGLYCERIDES (test code = 2232) 453 MG/DL HDL CHOLESTEROL (test code = 2220) 32 MG/DL CALC LDL CHOL (test code = 2237) (NOTE) MG/DL RISK RATIO LDL/HDL (test cod e = 2238) 3.19 RATIO Oseas GandhiCHLAMYDIA, AMPLIFIED, [id number] 00:00:00* Test Item Value Reference Range Interpretation Comme nts CHLAMYDIA, NAAT (test code = 21858) NEGATIVE Oseas GandhiGC, AMPLIFIED, [id number] 00:00:00* Test Item Value Reference Range Interpretation Comme nts GONORRHEA, NAAT (test code = 58694) NEGATIVE Oseas GandhiSARS-CoV-2 (COVID-19) by RT-PCR (HIGH RISK)2020-05-04 00:00:00* Test Item Value Reference Range Interpretation Comme nts SARS-CoV-2 INTERPRETATION (t est code = 60207) POSITIVE SOURCE (test code = 15996) NOT SPECIFIED Oseas GandhiSARS-CoV-2 (COVID-19) by RT-PCR (HIGH RISK)2020-05-04 00:00:00* Test Item Value Reference Range Interpretation Comme nts SARS-CoV-2 INTERPRETATION (t est code = 64928) POSITIVE SOURCE (test code = 56178) NOT SPECIFIED Oseas Melchor UpazieBFJZ-[id number]-6 (COVID-19) by RT-PCR (HIGH RISK)2020-05-04 00:00:00* Test Item Value Reference Range Interpretation Comme nts SARS-CoV-2 INTERPRETATION (t est code = 79047) POSITIVE SOURCE (test code = 46023) NOT SPECIFIED Oseas Melchor IvdvbyBFPR-DaP-5 (COVID-19) by RT-PCR (HIGH RISK)2020-03-29 00:00:00* Test Item Value Reference Range Interpretation Comme nts SARS-CoV-2 INTERPRETATION (t est code = 47500) NEGATIVE SOURCE (test code = 76355) NOT SPECIFIED Oseas Melchor LuvpswLKBI-EoW-7 (COVID-19) by RT-PCR (HIGH RISK)2020-03-29 00:00:00* Test Item Value Reference Range Interpretation Comme nts SARS-CoV-2 INTERPRETATION (t est code = 26215) NEGATIVE SOURCE (test code = 13125) NOT SPECIFIED Oseas Melchor PysughGWKS-GdU-0 (COVID-19) by RT-PCR (HIGH RISK)2020-03-29 00:00:00* Test Item Value Reference Range Interpretation Comme nts SARS-CoV-2 INTERPRETATION (t est code = 95136) NEGATIVE SOURCE (test code = 78348) NOT SPECIFIED Oseas GandhiCOMPREHENSIVE METABOLIC [id number] 00:00:00* Test Item Value Reference Range Interpretation Comme nts GLUCOSE (test code = 2217) 89 MG/DL BUN (test code = 2208) 15 MG/DL CREATININE (test code = 2214) 0.86 MG/DL eGFR AMER. (test cod e = 25602) 127 ML/MIN/1.73 eGFR NON- AMER. (test code = 60773) 109 ML/MIN/1.73 CALC BUN/CREAT (test code = 2235) 17 RATIO SODIUM (test code = 2231) 141 MEQ/L POTASSIUM (test code = 2228) 3.9 MEQ/L CHLORIDE (test code = 2215) 101 MEQ/L CARBON DIOXIDE (test code = 2206) 29 MEQ/L CALCIUM (test code = 2209) 9.9 MG/DL PROTEIN, TOTAL (test code = 2229) 7.8 G/DL ALBUMIN (test code = 2201) 4.4 G/DL CALC GLOBULIN (test code = 2240) 3.4 G/DL CALC A/G RATIO (test code = 2234) 1.3 RATIO BILIRUBIN, TOTAL (test code = 2207) 1.2 MG/DL ALKALINE PHOSPHATASE (test code = 2204) 125 U/L AST (test code = 2218) 57 U/L ALT (test code = 2219) 138 U/L Oseas GandhiLIPID [id number] 00:00:00* Test Item Value Reference Range Interpretation Comme nts CHOLESTEROL (test code = 2210) 178 MG/DL TRIGLYCERIDES (test code = 2232) 632 MG/DL HDL CHOLESTEROL (test code = 2220) 30 MG/DL CALC LDL CHOL (test code = 2237) (NOTE) MG/DL RISK RATIO LDL/HDL (test cod e = 2238) (NOTE) RATIO Oseas GandhiHEMOGLOBIN [id number] 00:00:00* Test Item Value Reference Range Interpretation Comme nts HEMOGLOBIN A1c (test code = 18376) 5.3 % Oseas GandhiCBC W/AUTO [id number] 00:00:00* Test Item Value Reference Range Interpretation Comme nts WBC (test code = 1001) 9.3 K/UL RBC (test code = 1002) 5.26 M/UL HEMOGLOBIN (test code = 1003) 16.2 G/DL HEMATOCRIT (test code = 1004) 45.0 % MCV (test code = 1005) 85.6 fL MCH (test code = 1006) 30.8 PG MCHC (test code = 1007) 36.0 G/DL RDW (test code = 1038) 13.3 % NEUTROPHILS (test code = 1008) 65.8 % LYMPHOCYTES (test code = 1010) 24.2 % MONOCYTES (test code = 1011) 6.9 % EOSINOPHILS (test code = 1012) 2.5 % BASOPHILS (test code = 1013) 0.6 % PLATELET COUNT (test code = 1015) 242 K/UL Oseas [id number] 00:00:00* Test Item Value Reference Range Interpretation Comme nts TSH, THIRD GENERATION (test code = 2821) 1.400 UIU/ML Oseas GandhiCOMPREHENSIVE METABOLIC [id number] 00:00:00* Test Item Value Reference Range Interpretation Comme nts GLUCOSE (test code = 2217) 89 MG/DL BUN (test code = 2208) 15 MG/DL CREATININE (test code = 2214) 0.86 MG/DL eGFR AMER. (test cod e = 41651) 127 ML/MIN/1.73 eGFR NON- AMER. (test code = 82648) 109 ML/MIN/1.73 CALC BUN/CREAT (test code = 2235) 17 RATIO SODIUM (test code = 2231) 141 MEQ/L POTASSIUM (test code = 2228) 3.9 MEQ/L CHLORIDE (test code = 2215) 101 MEQ/L CARBON DIOXIDE (test code = 2206) 29 MEQ/L CALCIUM (test code = 2209) 9.9 MG/DL PROTEIN, TOTAL (test code = 2229) 7.8 G/DL ALBUMIN (test code = 2201) 4.4 G/DL CALC GLOBULIN (test code = 2240) 3.4 G/DL CALC A/G RATIO (test code = 2234) 1.3 RATIO BILIRUBIN, TOTAL (test code = 2207) 1.2 MG/DL ALKALINE PHOSPHATASE (test code = 2204) 125 U/L AST (test code = 2218) 57 U/L ALT (test code = 2219) 138 U/L Oseas GandhiLIPID [id number] 00:00:00* Test Item Value Reference Range Interpretation Comme nts CHOLESTEROL (test code = 2210) 178 MG/DL TRIGLYCERIDES (test code = 2232) 632 MG/DL HDL CHOLESTEROL (test code = 2220) 30 MG/DL CALC LDL CHOL (test code = 2237) (NOTE) MG/DL RISK RATIO LDL/HDL (test cod e = 2238) (NOTE) RATIO Oseas GandhiHEMOGLOBIN [id number] 00:00:00* Test Item Value Reference Range Interpretation Comme nts HEMOGLOBIN A1c (test code = 01902) 5.3 % Oseas Melchor HiramCBC W/AUTO [id number] 00:00:00* Test Item Value Reference Range Interpretation Comme nts WBC (test code = 1001) 9.3 K/UL RBC (test code = 1002) 5.26 M/UL HEMOGLOBIN (test code = 1003) 16.2 G/DL HEMATOCRIT (test code = 1004) 45.0 % MCV (test code = 1005) 85.6 fL MCH (test code = 1006) 30.8 PG MCHC (test code = 1007) 36.0 G/DL RDW (test code = 1038) 13.3 % NEUTROPHILS (test code = 1008) 65.8 % LYMPHOCYTES (test code = 1010) 24.2 % MONOCYTES (test code = 1011) 6.9 % EOSINOPHILS (test code = 1012) 2.5 % BASOPHILS (test code = 1013) 0.6 % PLATELET COUNT (test code = 1015) 242 K/UL Oseas [id number] 00:00:00* Test Item Value Reference Range Interpretation Comme nts TSH, THIRD GENERATION (test code = 2821) 1.400 UIU/ML Oseas GandhiCOMPREHENSIVE METABOLIC [id number] 00:00:00* Test Item Value Reference Range Interpretation Comme nts GLUCOSE (test code = 2217) 89 MG/DL BUN (test code = 2208) 15 MG/DL CREATININE (test code = 2214) 0.86 MG/DL eGFR AMER. (test cod e = 10577) 127 ML/MIN/1.73 eGFR NON- AMER. (test code = 38486) 109 ML/MIN/1.73 CALC BUN/CREAT (test code = 2235) 17 RATIO SODIUM (test code = 2231) 141 MEQ/L POTASSIUM (test code = 2228) 3.9 MEQ/L CHLORIDE (test code = 2215) 101 MEQ/L CARBON DIOXIDE (test code = 2206) 29 MEQ/L CALCIUM (test code = 2209) 9.9 MG/DL PROTEIN, TOTAL (test code = 2229) 7.8 G/DL ALBUMIN (test code = 2201) 4.4 G/DL CALC GLOBULIN (test code = 2240) 3.4 G/DL CALC A/G RATIO (test code = 2234) 1.3 RATIO BILIRUBIN, TOTAL (test code = 2207) 1.2 MG/DL ALKALINE PHOSPHATASE (test code = 2204) 125 U/L AST (test code = 2218) 57 U/L ALT (test code = 2219) 138 U/L Oseas GandhiLIPID [id number] 00:00:00* Test Item Value Reference Range Interpretation Comme nts CHOLESTEROL (test code = 2210) 178 MG/DL TRIGLYCERIDES (test code = 2232) 632 MG/DL HDL CHOLESTEROL (test code = 2220) 30 MG/DL CALC LDL CHOL (test code = 2237) (NOTE) MG/DL RISK RATIO LDL/HDL (test cod e = 2238) (NOTE) RATIO Oseas GandhiHEMOGLOBIN [id number] 00:00:00* Test Item Value Reference Range Interpretation Comme nts HEMOGLOBIN A1c (test code = 59989) 5.3 % Oseas GandhiCBC W/AUTO [id number] 00:00:00* Test Item Value Reference Range Interpretation Comme nts WBC (test code = 1001) 9.3 K/UL RBC (test code = 1002) 5.26 M/UL HEMOGLOBIN (test code = 1003) 16.2 G/DL HEMATOCRIT (test code = 1004) 45.0 % MCV (test code = 1005) 85.6 fL MCH (test code = 1006) 30.8 PG MCHC (test code = 1007) 36.0 G/DL RDW (test code = 1038) 13.3 % NEUTROPHILS (test code = 1008) 65.8 % LYMPHOCYTES (test code = 1010) 24.2 % MONOCYTES (test code = 1011) 6.9 % EOSINOPHILS (test code = 1012) 2.5 % BASOPHILS (test code = 1013) 0.6 % PLATELET COUNT (test code = 1015) 242 K/UL Oseas [id number] 00:00:00* Test Item Value Reference Range Interpretation Comme nts TSH, THIRD GENERATION (test code = 2821) 1.400 UIU/ML Oseas Gandhi
[2024-09-15] MEDS ORDERED: ACETAMINOPHEN 500 MG TAB ONE (05:08)
[2024-09-15] MEDS ORDERED: LIDOCAINE 4% PATCH ONE (05:08)
[2024-09-15] MEDS ORDERED: KETOROLAC 30 MG/ML INJ ONE (05:08)
[2024-09-15] MEDS ORDERED: methocarbamoL 500 MG TAB ONE (05:08)
--- NOTE | 2024-09-15 05:32 | ER ---
Nurse's Notes [facility] Name: Tc Albarran Age: 44 yrs Sex: Male : 1980 Arrival Date: 09/15/2024 Time: 00:23 Bed 6 Private MD: Diagnosis: Rib Contusion Presentation: 09/15 01:27 Chief complaint: Patient states: 2 days ago fell in tub and hit right rib cage area. vc1 C/o pain and hard to take a deep breathe in. Care prior to arrival: None. Mechanism of Injury: Fall fell in tub. 01:27 Acuity: FRANTZ 3 vc1 01:27 Method Of Arrival: Ambulatory vc1 01:27 Coronavirus screen: Client denies travel out of the [place] in the last 14 days. At this vc1 time, the client does not indicate any symptoms associated with coronavirus-19. Ebola Screen: Patient negative for fever greater than or equal to 101.5 degrees Fahrenheit, and additional compatible Ebola Virus Disease symptoms Patient denies exposure to infectious person. Patient denies travel to an Ebola-affected area in the 21 days before illness onset. No symptoms or risks identified at this time. Initial Sepsis Screen: Does the patient meet any 2 criteria? No. Patient's initial sepsis screen is negative. Does the patient have a suspected source of infection? No. Patient's initial sepsis screen is negative. 01:27 Risk Assessment: Do you want to hurt yourself or someone else? Patient reports no vc1 desire to harm self or others. Onset of symptoms was September 15, 2024. Triage Assessment: 01:30 General: Appears in no apparent distress. uncomfortable, well groomed, well developed, vc1 well nourished, Behavior is calm, cooperative, appropriate for age. Pain: Complains of pain in anterior aspect of right lateral abdomen Pain does not radiate. EENT: No deficits noted. No signs and/or symptoms were reported regarding the EENT system. Neuro: Level of Consciousness is awake, alert, obeys commands, Oriented to person, place, time, situation, Appropriate for age. Cardiovascular: Heart tones S1 S2 present Capillary refill < 3 seconds Patient's skin is warm and dry. Respiratory: Airway is patent Respiratory effort is even, unlabored, Respiratory pattern is regular, symmetrical, Breath sounds are clear bilaterally. GI: Abdomen is round non-distended, Reports PAIN TO RIGHT LATERAL ABDOMEN. : No deficits noted. No signs and/or symptoms were reported regarding the genitourinary system. Derm: Skin is intact, is healthy with good turgor, Skin is dry, Skin is normal, Bruising that is brown, on anterior aspect of right lateral abdomen. Musculoskeletal: Circulation, motion, and sensation intact. Range of motion: intact in all extremities. Historical: - Allergies: 05:15 No Known Allergies; vc1 - Home Meds: 05:15 None [Active]; vc1 - PMHx: 05:15 High Cholesterol; Hyperlipidemia; vc1 - PSHx: 05:15 None; vc1 - Immunization history:: Adult Immunizations unknown. - Infectious Disease History:: Denies. - Social history:: Smoking status: unknown. Screenin:15 [facility] ED Fall Risk Assessment (Adult) History of falling in the last 3 months, vc1 including since admission Yes- single mechanical fall (1 pt) Confusion or Disorientation No (0 pts) Intoxicated or Sedated Impaired Gait No (0 pts) Mobility Assist Device Used No (0 pt) Altered Elimination No (0 pt) Score/Fall Risk Level 0 - 2 = Low Risk Oriented to surroundings, Maintained a safe environment, Educated pt \T\ family on fall prevention, incl call for assistance when getting out of bed. Abuse screen: Denies threats or abuse. Nutritional screening: No deficits noted. Tuberculosis screening: No symptoms or risk factors identified. Vital Signs: 01:29 BP 128 / 75; Pulse 92; Resp 20; Temp 98.2; Pulse Ox 93% ; Weight 127.01 kg; Height 5 vc1 ft. 10 in. ; Pain 4/10; 07:01 BP 126 / 76; Pulse 88; Resp 20; Pulse Ox 98% ; vc1 01:29 Body Mass Index 40.18 (127.01 kg, 177.8 cm) vc1 01:29 Pain Scale: Adult vc1 ED Course: 00:28 Patient arrived in ED. gm2 01:29 Triage completed. vc1 04:06 Bishnu Rodriguez MD is Attending Physician. ec2 04:55 Ribs Right XRAY In Process Unspecified. EDMS 05:15 Arm band placed on right wrist. vc1 05:21 Patient has correct armband on for positive identification. Bed in low position. Call vc1 light in reach. Provided Education on: CALL LIGHT. 06:59 No provider procedures requiring assistance completed. Patient did not have IV access vc1 during this emergency room visit. Administered Medications: 05:14 Drug: Ketorolac IM 30 mg IM once Route: IM; Site: right deltoid; vc1 05:14 Drug: Methocarbamol PO 500 mg PO once Route: PO; vc1 05:14 Drug: Acetaminophen PO 1000 mg PO once Route: PO; vc1 05:14 Drug: Lidoderm Topical Patch 5 % (700 mg/patch) 1 patches Topical once; leave on for 12 vc1 hours; cover most painful area; may cut into smaller pieces {Note: RIGHT LATERAL ABDOMEN.} Route: Topical; Site: abdomen; Medication: 05:21 VIS not applicable for this client. vc1 Outcome: 05:31 Discharge ordered by . ec2 06:59 Discharged to home ambulatory, vc1 06:59 Condition: good 06:59 Discharge instructions given to patient, Instructed on discharge instructions, follow up and referral plans. medication usage, Demonstrated understanding of instructions, follow-up care, medications, Prescriptions given X 1, 07:02 Patient left the ED. vc1 Signatures: Dispatcher [employer] Francine Grissom RN RN vc1 Bishnu Rodriguez MD MD 2 Abbey Ruano 2
--- NOTE | 2024-09-15 05:32 | EDPHYS ---
Physician Documentation [facility] Name: Tc Albarran Age: 44 yrs Sex: Male : 1980 Arrival Date: 09/15/2024 Time: 00:23 Bed 6 Private MD: ED Physician Bishnu Rodriguez HPI: 09/15 04:37 This 44 yrs old Male presents to ER via Ambulatory with complaints of Fall ec2 Injury, Flank Pain. 04:37 Patient arrives today for evaluation for right rib pain. States that he fell in his tub ec2 2 days ago. No LOC, no head or neck pain, complaining of right lateral rib pain.. Historical: - Allergies: 05:15 No Known Allergies; vc1 - Home Meds: 05:15 None [Active]; vc1 - PMHx: 05:15 High Cholesterol; Hyperlipidemia; vc1 - PSHx: 05:15 None; vc1 - Immunization history:: Adult Immunizations unknown. - Infectious Disease History:: Denies. - Social history:: Smoking status: unknown. ROS: 04:37 Constitutional: as per hpi ec2 Exam: 04:37 Constitutional: GEN: NAD Head: atraumatic Eyes: EOMI Ears: External ears are ec2 normal. CV: regular rate LUNGS: no respiratory distress, lung sounds present in all lung braun, no wheezes or rales ABD: non-distended SKIN: no evidence of rashes MSK: Right lateral rib pain without deformities, overlying ecchymosis. No crepitus appreciated. Vital Signs: 01:29 BP 128 / 75; Pulse 92; Resp 20; Temp 98.2; Pulse Ox 93% ; Weight 127.01 kg; Height 5 vc1 ft. 10 in. ; Pain 4/10; 07:01 BP 126 / 76; Pulse 88; Resp 20; Pulse Ox 98% ; vc1 01:29 Body Mass Index 40.18 (127.01 kg, 177.8 cm) vc1 01:29 Pain Scale: Adult vc1 MDM: 04:35 Medical Screening Exam initiated ec2 04:37 Data reviewed: vital signs, nurses notes. ED course: Patient arrives today for ec2 evaluation of right rib pain. Examination remarkable for right findings as above. Will obtain chest x-ray and rib series. Differential includes rib contusion, rib fracture. 05:30 ED course: Chest x-ray and rib series independently reviewed and interpreted by me, ec2 showed no bony fracture. Will discharge home. Suspect rib contusion.. 09/15 04:38 Order name: Ribs Right XRAY ec2 Administered Medications: 05:14 Drug: Ketorolac IM 30 mg IM once Route: IM; Site: right deltoid; vc1 05:14 Drug: Methocarbamol PO 500 mg PO once Route: PO; vc1 05:14 Drug: Acetaminophen PO 1000 mg PO once Route: PO; vc1 05:14 Drug: Lidoderm Topical Patch 5 % (700 mg/patch) 1 patches Topical once; leave on for 12 vc1 hours; cover most painful area; may cut into smaller pieces {Note: RIGHT LATERAL ABDOMEN.} Route: Topical; Site: abdomen; Disposition Summary: 09/15/24 05:31 Discharge Ordered Notes: Location: Home ec2 Condition: Stable ec2 Diagnosis - Rib Contusion ec2 Followup: ec2 - With: Private Physician - When: - Reason: Re-evaluation by your physician Discharge Instructions: - Discharge Summary Sheet ec2 Forms: - Medication Reconciliation Form ec2 - Antibiotic Education ec2 - Prescription Opioid Use ec2 - Patient Portal Instructions ec2 - Leadership Thank You Letter ec2 Prescriptions: - methocarbamol 500 mg Oral tablet - take 2 tablets ORAL route 4 times per day; 30 tablet; Refills: 0, Product ec2 Selection Permitted Signatures: Dispatcher [employer] Francine Grissom RN RN vc1 Bishnu Rodriguez MD MD ec2
--- NOTE | 2024-09-15 06:34 | RAD REPORT ---
CLINICAL HISTORY: Right rib pain. COMPARISON: None. TECHNIQUE: XR RIBS RIGHT 09/15/2024 4:38 AM COMMERCIAL TECHNICIAN FINDINGS: Cardiac silhouette is normal in size. Lungs are clear without consolidation, atelectasis, mass or la ma. There is no pleural effusion. There is no pneumothorax. There are no acute osseous findings. IMPRESSION: No acute fracture. Electronically signed by: Dre Verma MD 09/15/2024 06:14 AM COMMERCIAL TECHNICIAN RP Due to temporary technical issues with the PACS/[employer] reporting system, reports are being joaquim d by the in-house radiologist without review as a courtesy to ensure prompt reporting the interpreting radiologist is fully responsible for the content of the report. Transcribed Date/Time: 09/15/2024 6:34 AM
[2024-09-15 09:47] VITALS: TEMP 98.2
[2024-09-15 09:48] VITALS: BP 126/76; O2SAT 98
== END 2024-09-15 07:02 | disposition home or self-care (01) ==
LOC: ER 00:23
DX: S20.211A Contusion of right front wall of thorax, initial encounter (principal); W18.2XXA Fall in (into) shower or empty bathtub, initial encounter
CPT/HCPCS: 71100; 96372; 99284; J2003